=== PATIENT | female | born 1995 | race Caucasian/White ===

== ENCOUNTER → 2018-04-28 16:43 | Outpatient (CLI) | payer MEDICAID, SELFPAY ==
[2017-04-24 21:17] VITALS: BMI 39.3
--- NOTE | 2018-04-28 13:36 | TONS_PTH ---
PATIENT: TRUONG SEPULVEDA LOC: JULIO CESAR U#:[id number] AGE/SX: 29/F ROOM: RE04/28/[address]: Dr. Darius Newman MD : 1995 BED: DIS: SPEC #: [id number] RECD: 04/28/18 15:19 STATUS: NAOMI SALVATORE #: [id number] HARVEY: 04/28/18 13:[address]: Darius Newman DEPT: SURGICAL PATHOLOGY RECD BY: Jay Jay Jose ENTERED: 04/29/18 08:33 SP TYPE: TONSILS OTHR DR: Out of Town Doctor [facility] Tissues: Tonsil, NOS Procedures: Surgery Specimen Level III HEADER OPERATION: Tonsillectomy PRE-OP DIAGNOSIS: Chronic tonsillitis TISSUE SUBMITTED: Tonsils, right pinned MICROSCOPIC DIAGNOSIS Right and left tonsils, bilateral tonsillectomies: Benign lymphoid hyperplasia, consistent with chronic tonsillitis. Organisms consistent with actinomyces. AM:oxana 04/30/18 MICROSCOPIC DESCRIPTION Slides are reviewed. GROSS DESCRIPTION Received is one container labeled with the patient's name and designated tonsils - pin/tie on right are two tonsils that in aggregate weigh 6.7 gm. The right tonsil has a pin-tie on it and measures 3 x 2 x 1 cm. The left tonsil measures 3 x 2 x 1.2 cm. Both tonsils are similar in appearance. The external surfaces are pink-burroughs, smooth, glistening and somewhat lobulated. Focally they are hemorrhagic, granular and bear cautery artifact. Serial cross sections through the tonsils reveal normal tonsillar architecture. Sections are submitted in two cassettes as follows: 1 - right tonsil, 2 - left tonsil. / AM:oxana 04/29/18 TC:5 [facility]: [id number] x2
--- OUTSIDE RECORDS SUMMARY | 2018-06-30 23:02 | XMS RPT_ITS ---
:1995 Author Organization [facility] Care Team Providers Name Role Phone MAGDIEL CHOU Attending Unavailable Darius Newman Attending Unavailable Darius Newman Referring Unavailable ANGELINA RUBALCAVA Primary Care Unavailable PROBLEMS PROBLEMS No Problem Records FoundPROCEDURES PROCEDURES No Procedure Records FoundRESULTS RESULTS TONSILS Observed: 04/28/2018 Status: F Source: [place] 1:36 PM [facility] REPOSITORY Patient: TRUONG LANDERS : 1995 (/) Acct Num: [id number] Phys: Darius Newman MD Unit Num: [id number] Loc: LABSPEC Specimen: [id number] Received: 04/28/181518 Spec Type: TONSILS TISSUES 1 TISSUES: Tonsil, NOS GROSS DESCRIPTION Received is one container labeled with the patient's name and designated tonsils - pin/tie on right are two tonsils that in aggregate weigh 6.7 gm. The right tonsil has a pin-tie on it and measures 3 x 2 x 1 cm. The left tonsil measures 3 x 2 x 1.2 cm. Both tonsils are similar in appearance. The external surfaces are pink-burroughs, smooth, glistening and somewhat lobulated. Focally they are hemorrhagic, granular and bear cautery artifact. Serial cross sections through the tonsils reveal normal tonsillar architecture. Sections are submitted in two cassettes as follows: 1 - right tonsil, 2 - left tonsil. / AM:oxana 04/29/18 TC:5 CPT: 62414 x2 HEADER OPERATION: Tonsillectomy PRE-OP DIAGNOSIS: Chronic tonsillitis TISSUE SUBMITTED: Tonsils, right pinned MICROSCOPIC DESCRIPTION Slides are reviewed. MICROSCOPIC DIAGNOSIS Right and left tonsils, bilateral tonsillectomies: Benign lymphoid hyperplasia, consistent with chronic tonsillitis. Organisms consistent with actinomyces. AM:rg 04/30/18 Signed Darius Colby, DO 04/30/18 <signature on file> Performed By: #### PTONS #### [facility] [address] [place], [address] Observed: 09/23/2017 Status: F Source: [place] BACT VAG GRAM STAIN 5:00 PM [facility] REPOSITORY Sp. Request/Comment: - Swab Smear Result - BACTERIAL VAGINOSIS RESULT: Stain results consistent with normal vaginal makenzie. No Yeast observed No Polymorphonuclear Leukocytes Performed By: #### BVSTN #### [facility] [place] [address] Observed: 09/23/2017 Status: F Source: [place] TRICHOMONAS PREP 5:00 PM [facility] REPOSITORY Sp. Request/Comment: - Swab Smear Result - Negative for Trichomonas vaginalis antigen This test was developed and its performance characteristics determined by [facility] [place] ([facility]). It has not been cleared or approved by the FDA. [facility] is regulated under CLIA as qualified to perform high-complexity testing. This test is used for clinical purposes. It should not be regarded as investigational or for research. Performed By: #### TRICHO #### [facility] [place] [address] GC/CHLAMYDIA AMPLIF Collected: 09/23/2017 Status: F Source: [place] 5:00 [facility] REPOSITORY TYPE CODE TESTS RESULT OUT OF REFERENCE UNITS RANGE LAB GCCTSR GC/Chlam Amp [facility] Source LAB GCAMPL GC Negative Amplification for Neisseria gonorrhoeae by amplification. LAB CLAMPL Chlamydia Negative Amplif for Chlamydia trachomatis by amplification. Performed By: #### GCCT #### [facility] [place] [address] PROGRESS Observed: 09/23/2017 Status: COMPLETED Source: [place] 4:37 PM [facility] RE[facility]IT[facility] HNO ID: [id number] Author: Magdiel Chou Service: (none) Author Type: Physician Type: Progress Notes Filed: 09/23/2017 5:05 PM Note Text: Truong Landers is a 21 year old female who presents for pelvic pain. HPI: Patient reports monthly cramping/pelvic pain. Patient reports some urinary frequency- this started 1 month ago. She wants to discuss mirena AND other control options. She denies vaginitis symptoms but is OK with being checking for infection. PAST MEDICAL HISTORY Diagnosis Date - Anxiety - Depression PAST SURGICAL HISTORY Procedure Laterality Date - NONE FAMILY HISTORY Problem Relation Age of Onset - Diabetes Paternal Grandmother - Diabetes Maternal Grandmother Social History Marital status: Single Spouse name: Years of education: Number of children: Social History Main Topics Smoking status: Former Smoker Packs/day: 0.00 Years: 0.00 Types: Cigarettes Smokeless tobacco: Never Used Comment: 2 cigarettes daily Alcohol use: No Drug use: No Sexual activity: Yes control/protection: IUD Social History Narrative PEDS SOCIAL Hx: Llives with Mom and step dad.. Parents are . Parents smokes in the house.. She is cared for at home by mother. There are no pets. Newer home (post 1969)- yes. Smoke detectors- yes, Appropriate use of auto restraints- yes , Appropriate use of sports safety equipment-yes, All firearms secured in home- in a safe. Swimming/water Safety OK- no. Current Outpatient Prescriptions: FLUOXETINE HCL (PROZAC ORAL) Take by mouth. Naproxen Sodium 550 mg tablet Take 1 tablet by mouth twice daily with meals. For pain. levonorgestrel (MIRENA) 20 mcg/24 hr (5 years) IUD Inserted in office No current facility-administered medications for this visit. Allergies As of Date: 09/23/2017 (No Known Allergies) Fully Assessed 04/29/2016 REVIEW OF SYSTEMS Abdomen: No bloating, early satiety, indigestion, or increased flatulence. No abdominal pain, nausea, vomiting, diarrhea, or constipation. Breast: No breast lumps, nipple d/c, overlying skin changes, redness or skin retraction. Expanded ROS: N/A Allergies and current medication updated:Yes EXAM: BP 118/78 Wt 221 lb (100.2kg) GENERAL: pleasant, female in no apparent distress CHEST: Normal inspiratory effort ABDOMEN: soft, non-tender and no masses PELVIC: external genitalia normal, normal Bartholin's glands, urethra, [place]'s glands, no vulvar lesions, no cervical lesions, good vaginal support, physiologic discharge present, normal appearing perineal body and perianal region; IUD strings extruding from cervix BIMANUAL: exam limited by obesity AND patients discomfort with exam NEURO: alert and oriented x3,exam grossly non-focal EXTREMITIES: normal ASSESSMENT AND PLAN: 21yo female with pelvic pain, urinary frequency AND control concerns Check pelvic US Vaginitis swab AND GC/chlam UA AND urine culture Discussed R/B/A of control options AND patient will continue mirena IUD at this time Magdiel Chou MD CNOV Observed: 09/23/2017 Status: COMPLETED Source: [place] 4:20 PM [facility] REPOSITORY Office Visit (WOOB) TRUONG LANDERS ([id number]) 1995 F Date Time Provider Department 09/23/17 4:20 PM MAGDIEL CHUO During your visit today, we recorded the following information about you: Blood pressure Weight 118/78 100.2 kg Magdiel Chou MD 09/23/2017 5:05 PM Signed Truong Landers is a 21 year old female who presents for pelvic pain. HPI: Patient reports monthly cramping/pelvic pain. Patient reports some urinary frequency- this started 1 month ago. She wants to discuss mirena AND other control options. She denies vaginitis symptoms but is OK with being checking for infection. PAST MEDICAL HISTORY Diagnosis Date - Anxiety - Depression PAST SURGICAL HISTORY Procedure Laterality Date - NONE FAMILY HISTORY Problem Relation Age of Onset - Diabetes Paternal Grandmother - Diabetes Maternal Grandmother Social History Marital status: Single Spouse name: Years of education: Number of children: Social History Main Topics Smoking status: Former Smoker Packs/day: 0.00 Years: 0.00 Types: Cigarettes Smokeless tobacco: Never Used Comment: 2 cigarettes daily Alcohol use: No Drug use: No Sexual activity: Yes control/protection: IUD Social History Narrative PEDS SOCIAL Hx: Llives with Mom and step dad.. Parents are . Parents smokes in the house.. She is cared for at home by mother. There are no pets. Newer home (post 1970)- yes. Smoke detectors- yes, Appropriate use of auto restraints- yes , Appropriate use of sports safety equipment-yes, All firearms secured in home- in a safe. Swimming/water Safety OK- no. Current Outpatient Prescriptions: FLUOXETINE HCL (PROZAC ORAL) Take by mouth. Naproxen Sodium 550 mg tablet Take 1 tablet by mouth twice daily with meals. For pain. levonorgestrel (MIRENA) 20 mcg/24 hr (5 years) IUD Inserted in office No current facility-administered medications for this visit. Allergies As of Date: 09/23/2017 (No Known Allergies) Fully Assessed 04/29/2016 REVIEW OF SYSTEMS Abdomen: No bloating, early satiety, indigestion, or increased flatulence. No abdominal pain, nausea, vomiting, diarrhea, or constipation. Breast: No breast lumps, nipple d/c, overlying skin changes, redness or skin retraction. Expanded ROS: N/A Allergies and current medication updated:Yes EXAM: BP 118/78 Wt 221 lb (100.2kg) GENERAL: pleasant, female in no apparent distress CHEST: Normal inspiratory effort ABDOMEN: soft, non-tender and no masses PELVIC: external genitalia normal, normal Bartholin's glands, urethra, [place]'s glands, no vulvar lesions, no cervical lesions, good vaginal support, physiologic discharge present, normal appearing perineal body and perianal region; IUD strings extruding from cervix BIMANUAL: exam limited by obesity AND patients discomfort with exam NEURO: alert and oriented x3,exam grossly non-focal EXTREMITIES: normal ASSESSMENT AND PLAN: 21yo female with pelvic pain, urinary frequency AND control concerns Check pelvic US Vaginitis swab AND GC/chlam UA AND urine culture Discussed R/B/A of control options AND patient will continue mirena IUD at this time Magdiel Chou MD Referring Provider: SELF [200] Allergies As of Date: 09/23/2017 (No Known Allergies) Date Reviewed: 09/23/2017 Reviewed by: Magdiel Chou - Fully Assessed Reason for Visit: IUD Removal [1950] Reason For Visit History Recorded Primary Visit Diagnosis:Pelvic pain [R10.2] Other Visit Diagnoses:Encounter for IUD removal [Z30.432] Urinary frequency [R35.0] Order(s):REMOVE INTRAUTERINE DEVICE [1875065] Order #: [id number] FEMALE PELVIS TRANSVAG [[id number]] Order #: [id number] FUTURE US FEMALE PELVIS TRANSABD LTD [[id number]] Order #: [id number] FUTURE PELVIC US WHI [5618874] Order #: [id number]: 1 BACTERIAL VAGINOSIS SCORED GRAM STAIN [SQBVSTN] Order #: [id number] VAGINAL SMEAR FOR JESSI [SQCANSTN] Order #: [id number] TRICHOMONAS PREP [SQTRICHO] Order #: [id number] GC/CHLAMYDIA DNA DET [SQGCCAMP] Order #: [id number] URINALYSIS WITH MICROSCOPIC [SQUAWMIC] Order #: [id number] URINE CULTURE [SQURCUL] Order #: [id number] FUTURE Prescriptions as of 09/23/2017 Sig: PROZAC ORAL Take by mouth. NAPROXEN SODIUM 550 MG TABLET Take 1 tablet by mouth twice * LEVONORGESTREL 20 MCG/24 HR (* Inserted in office Problem List As Of Date 09/23/2017 Noted Resolved ROUTIN CHILD HEALTH EXAM [Z00.129] INVALID FOR* SPEECH/LANGUAGE DIS NEC [F80.89] INVALID FOR* Medications Discontinued During This Encounter LEVOTHYROXINE SODIUM (LEVOTHROID ORA* 09/23/2017 Class: Historical Med Route: ORAL Sig: Take by mouth. Disc: Discontinued by Patient FLUoxetine (PROZAC) 20 mg capsule 09/23/2017 Class: Historical Med Route: ORAL Sig: Take 20 mg by mouth once daily. Disc: Discontinued by Patient Sxquaadodydse-Yzhlkayjtyqhd-BK (TYLE* 30 t* 0 07/25/2015 09/23/2017 Route: ORAL Sig: Take 1 Dose by mouth four times daily as needed. Disc: Discontinued by Patient citalopram hydrobromide (CELEXA) 10 * 09/23/2017 Class: Historical Med Route: ORAL Sig: Take 10 mg by mouth once daily. Disc: Discontinued by Patient Malathion (OVIDE) 0.5 % lotion 59 mL 1 02/23/2015 09/23/2017 Class: Print RX Sig: Use on dry hair and rub gently until the scalp is thoroughly moistened (pay special attention to the back of the head and neck). Allow to dry naturally - USE NO HEAT. Leave uncovered. After 8-12 hours, wash hair with a nonmedicated shampoo. Then use a fine-toothed comb to remove lice and nits. Repeat in 1 week if required. Disc: Discontinued by Patient phenazopyridine (PYRIDIUM) 100 mg ta* 9 ta* 0 05/05/2015 09/23/2017 Route: ORAL Sig: Take 1 tablet by mouth three times daily as needed. Disc: Discontinued by Patient Disposition: Return if symptoms worsen or fail to improve, for Routine annual exam. Follow-up and Disposition History Recorded Encounter Status:Closed by MAGDIEL CHOU MD on 09/23/17 ALLERGIES ALLERGIES DATE TYPE / CODE NAME / CODE REACTION SEVERITY SOURCE 04/24/2017 Drug peanut/[id number] Swelling Unknown [facility] Allergy/416 8(RXNORM) [facility] 929088(SNOM Repository ED CT) Drug NO KNOWN [facility] Class/59282 ALLERGIES [address] [place] 1003(SNOMED Repository CT) ENCOUNTERS ENCOUNTERS ADMIT/DISCHARGE ACCOUNT ADMITTING ENCOUNTER LOCATION SOURCE NUMBER CLASS 04/28/2018 [id number] [facility] ing:LABSPEC Repository 09/23/2017/09/26/19 [id number] Ambulatory [address] Repository PAYERS PAYERS ENCOUNTER GUARANTOR PAYER SUBSCRIBER SOURCE 04/28/2018 TRUONG Primary TRUONG [place] [id number] Insurance:CARESOURCEP THEODORAB: [facility] jalyn [place]ORE [facility]: [id number] [address]Twk: [id number] Repository Date:2018-04-28 O (LV) [address]ATTN: [place] [address]OS: 04/28/2018 [facility]SELF [facility] Number: Effective Repository Date:2018-04-28
== END ==
PROVIDERS: Referring Provider Otolaryngology Otolaryngology/Facial Plastic Surgery; Visit Provider Otolaryngology Otolaryngology/Facial Plastic Surgery
DX: J35.01 Chronic tonsillitis (principal)
CPT/HCPCS: 88304

== ENCOUNTER 2018-05-05 12:59 | Day surgery (SDC) | payer MEDICAID, SELFPAY ==
[2018-05-05] VITALS (8 sets, daily range): BP systolic 121–155; BP diastolic 83–95; PULSE 88–115; RESP 16–18; TEMP 36.3–37.7; O2SAT 95–99; BMI 36.9; BMI 36.5
--- NOTE | 2018-05-05 13:09 | ED.RN ---
DR NEELY CALLED IN, TO SEE PT SHORTLY
--- NOTE | 2018-05-05 13:21 | ED.RN ---
DR NEELY PRESENT FOR PT'S EXAMINATION
--- NOTE | 2018-05-05 13:31 | ED.RN ---
TO GO DIRECTLY TO OR PER DR NEELY. SPOKE WITH JORGE, SURGERY CHARGE NURSE WHO IS AWAITING PT.
[2018-05-05 14:34] LABS: Internal QC Validated? YES +Cl - CLEAR BKGD; Pregnancy, Urine Negative Negative
[2018-05-05] MEDS: Oxymetazoline 0.05% 1 SPRAY SPRAY.BTL 15 SPRAY (15:00)
--- NOTE | 2018-05-05 15:04 | PCM.OP.BLANK ---
Operative Report Date of Procedure: 05/05/18 Operative report on Jagruti larry Procedure hypopharyngoscopy and cautery of tonsil bleeder Preoperative diagnosis post tonsillectomy bleeding Postoperative diagnosis same Anesthesia General Procedure the patient was placed supine on the operating room table. After satisfactory endotracheal general anesthesia been obtained sterile head drapes were applied and the patient draped in the usual sterile manner. A Dangelo-Paulie mouthgag was placed in the oral cavity and the tongue retracted anteriorly. The left tonsil fossa appeared to exhibit a large dark clot. The clot was evacuated with suction and a brisk bleeder was encountered arising from the lower portion of the left tonsil fossa. The bleeding site was cauterized with the Bovie. The tonsil fossa was cleaned with suction and the hypopharynx was suctioned. The stomach contents were aspirated with a [employer] Tech sump pump. The procedure was considered terminated and the patient extubated and returned to the recovery room in satisfactory condition. Darius Leonardo
--- NOTE | 2018-05-05 15:08 | OP.PCM_ITS ---
Operative Report Date of Procedure: 05/05/18 Operative report on Jagruti larry Procedure hypopharyngoscopy and cautery of tonsil bleeder Preoperative diagnosis post tonsillectomy bleeding Postoperative diagnosis same Anesthesia General Procedure the patient was placed supine on the operating room table. After satisfactory endotracheal general anesthesia been obtained sterile head drapes were applied and the patient draped in the usual sterile manner. A Dangelo-Paulie mouthgag was placed in the oral cavity and the tongue retracted anteriorly. The left tonsil fossa appeared to exhibit a large dark clot. The clot was evacuated with suction and a brisk bleeder was encountered arising from the lower portion of the left tonsil fossa. The bleeding site was cauterized with the Bovie. The tonsil fossa was cleaned with suction and the hypopharynx was suctioned. The stomach contents were aspirated with a [employer] Digital sump pump. The procedure was considered terminated and the patient extubated and returned to the recovery room in satisfactory condition. Darius Leonardo
[2018-05-05] MEDS: Acetaminophen 650 MG/20 ML UDC PO (16:02)
== END 2018-05-05 17:25 | disposition home or self-care (01) ==
LOC: SDC 13:46 → AC 13:46
PROVIDERS: Anesthesiology; Family Provider Family Medicine; PCP Family Medicine; Referring Provider Otolaryngology Otolaryngology/Facial Plastic Surgery; Visit Provider Otolaryngology Otolaryngology/Facial Plastic Surgery
PROC: (CPT 42960; principal; 2018-05-05 13:30)
DX: J95.830 Postprocedural hemorrhage of a respiratory system organ or structure following a respiratory system procedure (principal); Y83.9 Surgical procedure, unspecified as the cause of abnormal reaction of the patient, or of later complication, without mention of misadventure at the time of the procedure; F17.200 Nicotine dependence, unspecified, uncomplicated; F43.10 Post-traumatic stress disorder, unspecified
CPT/HCPCS: 42960; 81025; J7120; J2405

== ENCOUNTER 2018-05-12 16:02 | Emergency (ER) | payer MEDICAID, SELFPAY ==
[2018-05-05 14:07] VITALS: BMI 36.5
[2018-05-12 16:03] VITALS: BP 122/91; PULSE 104; RESP 16; TEMP 36.2; O2SAT 95; BMI 36.6
[2018-05-12 16:33] VITALS: O2SAT 95
--- NOTE | 2018-05-12 16:40 | RAD_ITS ---
STUDY: X-RAY CHEST REASON FOR EXAM: Female, 22 years old. Cough 1 week TECHNIQUE: PA and lateral views of the chest. COMPARISON: April 24, 2017 chest x-ray FINDINGS: The lungs are clear and expanded. There is no demonstrated pleural abnormality. Normal size heart. Normal mediastinum and hilario. Normal visualized pulmonary arteries. Normal visualized aortic arch and descending thoracic aorta. Normal visualized thoracic spine. Normal visualized ribs, clavicles, and shoulders. There is no demonstrated abnormality of the visualized soft tissue structures of the upper abdomen. RAD/Chest PA and Lateral IMPRESSION: Normal x-ray examination of the chest. Electronically Signed: Monica Hines MD at 17:01 EST Tel , Service support ,
--- NOTE | 2018-05-12 16:43 | ED.DCSUM_ITS ---
- ER Visit Summary Date of Service: 05/12/18 Chief Complaint: [Cough] History of Present Illness: The patient is a 22 F [presents to the emergency department complaint of a cough that started about a week ago. Patient states the cough got worse last night. Patient states all her other siblings have been ill with similar type illness. Patient states that she is coughing so hard that it is making her gag and she is been vomiting. She denies any diarrhea. She denies any abdominal pain. Patient is not had a fever or chills. Cough at times is productive of yellow sputum.] Physical Examination: [HEENT-PERRLA, EOMI. Cranial nerves II through XII grossly intact. TMs clear. Mucous membranes moist. No adenopathy. Cardiovascular-regular rate and rhythm without murmur or ectopy Lungs-clear to auscultation, chest wall stable without crepitus or subcu emphysema Abdomen-normoactive bowel sounds, soft, nontender, no rebound or rigidity, no peritoneal signs. Extremities-intact ?4, normal range of motion, normal pulses, atraumatic] Test Results: [Chest x-ray obtained showed nothing acute] Emergency Department Course and Treatment: [] Treatment Plan: [Patient will be started on Tessalon Perles. I suspect likely viral etiology. I do not feel antibiotics are indicated at this time.] Disposition: [Discharged home in stable condition] Impression: [Viral URI Posttussive emesis] This note was generated with [employer] dictation software. It may contain incorrect words, spelling, and punctuation that were not noted in review of the chart prior to signing ED Disposition - Plan for ED Patient: Referrals: London Ferris MD [Primary Care Provider] -
--- NOTE | 2018-05-12 16:43 | ED.DEP ---
ED Disposition - Plan for ED Patient: Instructions: ED Upper Resp Infec No Abx Tx Prescriptions: Benzonatate [Tessalon Perle] 200 mg PO TID PRN PRN #20 cap PRN Reason: Cough Referrals: London Ferris MD [Primary Care Provider] - 5-7 Days
[2018-05-12] MEDS: Benzonatate 100 MG Capsule 200 MG PO (16:52)
== END 2018-05-12 17:21 | disposition home or self-care (01) ==
LOC: ED 16:44
PROVIDERS: Emergency Provider Emergency Medicine; Family Provider Family Medicine; PCP Family Medicine
DX: J06.9 Acute upper respiratory infection, unspecified (principal); R11.10 Vomiting, unspecified; Z72.0 Tobacco use
CPT/HCPCS: 71046; 99283

== ENCOUNTER 2019-09-07 22:31 | Observation (INO) | payer MEDICAID, SELFPAY ==
[2019-09-07 22:31] VITALS: BP 135/98; PULSE 115; RESP 20; TEMP 37.1; O2SAT 98; BMI 39.4
--- NOTE | 2019-09-07 22:56 | US_ITS ---
STUDY: ABDOMINAL ULTRASOUND - RIGHT UPPER QUADRANT REASON FOR VISIT: Female, 23 years old patient with back pain after eating TECHNIQUE: Ultrasound evaluation of the right upper quadrant was performed with real-time and static rodriguez-scale imaging. TECHNICAL QUALITY: Adequate. Examination limited by bowel gas. COMPARISON: Prior comparable comparison studies are not available for review at this time. FINDINGS: Liver: The liver measures 17.1 cm. There is normal echogenicity of the liver. The bile ducts are within normal limits. There is hepatic color flow. The direction of portal flow is hepatopetal. There is no demonstrated mass lesion. Gallbladder: There is a markedly distended gallbladder. The gallbladder wall measures 3.3 mm. There is a positive sonographic Ellis''s sign. There is no pericholecystic fluid. There are multiple echogenic structures within the gallbladder, consistent with multiple gallstones. Common Bile Duct (C.B.D.): The common bile duct measures 7.7 mm. Pancreas: Normal size of body of the pancreas. Pancreatic head and tail are not visualized There is normal echogenicity of the pancreas. There is no demonstrated pancreatic mass or cyst. Right Kidney: Normal size of the right kidney. The right kidney measures 10.2 x 3.9 x 4.5 cm. Normal renal cortex. The right cortex measures 1.3 cm. There is no demonstrated renal mass or cyst. There is no right hydronephrosis. US/Gallbladder IMPRESSION: 1. Cholelithiasis with positive sonographic Ellis''s sign suggests sequela of acute cholecystitis. 2. Dilated common bile duct. 3. Limited visualization of pancreas secondary to bowel gas. Electronically Signed: Snehal Watson MD at 0:21 EDT , Service support ,
[2019-09-07] MEDS: 0.9% Normal Saline 1,000 ML 125 ML IV (23:39)
[2019-09-07 23:40] LABS: Absolute Lymphocyte Count 1.84 X10^3/uL (0.83-4.51); Absolute Neutrophil Count 6.2 X10^3/uL (2.0-7.7); Basophil# 0.05 X10^3/uL; Basophil% 0.6 % (0-1); Eosinophil# 0.04 X10^3/uL; Eosinophils% 0.5 % (0-5); Hematocrit 43.3 % (37-47); Hemoglobin 13.5 g/dL (12.0-15.0); Lymphocyte # 1.84 X10^3/ul (4.0); Lymphocyte % 21.5 % (19-41); Mean Corp Hgb Conc 31.2 g/dL (32-36); Mean Corpuscular Volume 93.1 fL (81-99); Mean Platelet Vol. 11.4 fl (6.2-12.0); Monocyte# 0.39 X10^3/uL; Monocyte% 4.6 % (0-10); NRBC Flagged by Analyzer 0 % (0-5); Neutrophil % 72.6 % (47-70); Platelet Count 236 K/mm3 (150-450); RBC Distribution Width CV 12.5 % (11.6-14.6); RBC Distribution Width SD 42.8 fl (35.1-43.9); Red Blood Count 4.65 M/mm3 (4.2-5.4); White Blood Count 8.5 K/mm3 (4.4-11.0)
[2019-09-07 23:47] LABS: Internal QC Validated? YES +Cl - CLEAR BKGD; Pregnancy, Serum, hCG Quali. NEGATIVE Negative
[2019-09-08] VITALS (11 sets, daily range): BP systolic 104–149; BP diastolic 70–89; PULSE 83–111; RESP 16–20; TEMP 36.2–37.1; O2SAT 92–100; BMI 38.8; BMI 38.9
[2019-09-08 00:02] LABS: ALB/GLOB Ratio 0.7 RATIO (0.9-2.4); AST(SGOT) 277 U/L (15-37); Alanine Aminotransfer ALT/SGPT 423 U/L (13-56); Albumin, Serum 3.2 g/dL (3.2-5.0); Alkaline Phosphatase 201 U/L (45-117); Anion Gap 8 (5-15); BUN 10 mg/dL (7-18); BUN/Creat Ratio 12.9 RATIO (10-20); Calcium,Total 8.8 mg/dL (8.5-10.1); Chloride 107 mmol/L (98-107); Creatinine, Serum 0.77 mg/dL (0.55-1.02); EST Glomerular Filtration Rate 98 mL/min (>60); Est Glom Filt Rate - Afr Amer 119 mL/min (>60); Estimated Creatinine Clearance 98.96 ml/min; Globulin 4.4 g/dL (2.2-4.2); Glucose 98 mg/dL (74-106); Lipase 81 U/L (73-393); Potassium 4.5 mmol/L (3.5-5.1); Protein, Total 7.6 g/dL (6.4-8.2); Sodium Level 140 mmol/L (136-145)
[2019-09-08 00:31] LABS: Mucous, Urine 0 SEEN /hpf (<or=2+); Red Blood Cells-Urine 0 SEEN /hpf (0-5)
[2019-09-08 00:34] LABS: Color, Urine Straw (Yellow); Glucose, Dipstick Normal (Normal); Ketone-Dipstick 15 mg/dl (Negative); Leukocyte Esterase-Dipstick 25 /ul (Negative); Nitrite-Dipstick Negative (Negative); Occult Blood-Urine Negative /ul (Negative); Protein-Dipstick 15 mg/dl (Negative); Urine Clarity Clear (Clear); Urine Urobilinogen 12 mg/dl (Normal)
--- NOTE | 2019-09-08 00:36 | ED.DCSUM_ITS ---
- ER Visit Summary Date of Service: 09/08/19 Chief Complaint: [Abdominal pain] History of Present Illness: The patient is a 23 F [presents the emergency department abdominal pain that started 3 days ago. Patient's had pain off and on for years. Patient states that when she eats she gets the pain. Patient notices it more with greasy food. Pain became more severe tonight. She describes the pain in her back as well. She has had no nausea or vomiting. She denies urinary symptoms. Patient has no medical history.] Physical Examination: [HEENT-PERRLA, EOMI. Cranial nerves II through XII grossly intact. TMs clear. Mucous membranes moist. No adenopathy. Cardiovascular-regular rate and rhythm without murmur or ectopy Lungs-clear to auscultation, chest wall stable without crepitus or subcu emphysema Abdomen-normoactive bowel sounds, soft. Patient has tenderness to palpation over the right upper quadrant with guarding. She had a positive Ellis sign. Extremities-intact ?4, normal range of motion, normal pulses, atraumatic] Test Results: [CBC with differential obtained showed a normal white count of 8.5, hemoglobin 13.5, hematocrit 43, platelet 236. Chemistries unremarkable. Total bilirubin was 3.1. Alk phos was 201. ALT was 423 and AST was 277. Lipase was 81. hCG was negative. Ultrasound of the right upper quadrant showed cholelithiasis as well as a distended common bile duct of 7.7 mm and a positive sonographic Ellis sign which would be consistent with cholecystitis.] Emergency Department Course and Treatment: [She had an IV line established. She was medicated with Dilaudid 1 mg IV and Zofran 4 mg IV. Case was discussed with general surgeon on-call Dr. Patricia Harris who will admit patient to hospital.] Treatment Plan: [Admit] Disposition: [Admit] Impression: [Abdominal pain Cholecystitis] This note was generated with [employer] dictation software. It may contain incorrect words, spelling, and punctuation that were not noted in review of the chart prior to signing ED Disposition - Plan for ED Patient: Referrals: London Ferris MD [Primary Care Provider] -
[2019-09-08 00:37] LABS: Urine Bilirubin Dipstick 3 mg/dL (Negative)
[2019-09-08 00:41] LABS: White Blood Cells 5-10 SEEN /hpf (0-5)
[2019-09-08 00:42] LABS: Bacteria 1+ /hpf (None Seen); Squamous Epithelial Cells - UA 10-25 SEEN /hpf (5-10)
[2019-09-08] MEDS: HYDROmorphone 1 MG/ML Syringe IV (00:49)
[2019-09-08] MEDS: Ondansetron 4 MG/2 ML Vial IV (00:49)
[2019-09-08] MEDS: 0.9% Normal Saline 1,000 ML 125 ML IV ×3 (03:16→21:36)
--- NOTE | 2019-09-08 04:40 | NURSING ---
Yessenia from respiratory notified that pt will need EKG done for surgery.
--- NOTE | 2019-09-08 05:30 | EKG12_ITS ---
Test Reason : PRE-OP Blood Pressure : / mmHG Vent. Rate : 073 BPM Atrial Rate : 073 BPM P-R Int : 160 ms QRS Dur : 080 ms QT Int : 364 ms P-R-T Axes : 032 033 032 degrees QTc Int : 401 ms Sinus rhythm with marked sinus arrhythmia Otherwise normal ECG When compared with ECG of 24-APR-2017 21:25, No significant change was found Confirmed by GAGAN CASTRO ([id number]), tape editor MAYO PERES ([id number]) on 09/16/2019 7:57:44 AM Referred By: AG Confirmed By:AGGAN CASTRO
[2019-09-08 05:47] LABS: Absolute Lymphocyte Count 2.07 X10^3/uL (0.83-4.51); Absolute Neutrophil Count 6.6 X10^3/uL (2.0-7.7); Basophil# 0.04 X10^3/uL; Basophil% 0.4 % (0-1); Eosinophil# 0.01 X10^3/uL; Eosinophils% 0.1 % (0-5); Hematocrit 39.5 % (37-47); Hemoglobin 12.4 g/dL (12.0-15.0); Lymphocyte # 2.07 X10^3/ul (4.0); Lymphocyte % 22.5 % (19-41); Mean Corp Hgb Conc 31.4 g/dL (32-36); Mean Corpuscular Hgb 28.9 pg (27.0-32.0); Mean Corpuscular Volume 92.1 fL (81-99); Mean Platelet Vol. 11.4 fl (6.2-12.0); Monocyte# 0.49 X10^3/uL; Monocyte% 5.3 % (0-10); NRBC Flagged by Analyzer 0 % (0-5); Neutrophil # 6.57 X10^3/uL (2.7-7.7); Neutrophil % 71.5 % (47-70); Platelet Count 251 K/mm3 (150-450); RBC Distribution Width CV 12.4 % (11.6-14.6); RBC Distribution Width SD 41.6 fl (35.1-43.9); Red Blood Count 4.29 M/mm3 (4.2-5.4); White Blood Count 9.2 K/mm3 (4.4-11.0)
[2019-09-08 06:16] LABS: AST(SGOT) 367 U/L (15-37); Alanine Aminotransfer ALT/SGPT 458 U/L (13-56); Albumin, Serum 2.9 g/dL (3.2-5.0); Alkaline Phosphatase 208 U/L (45-117); Anion Gap 8 (5-15); BUN 7 mg/dL (7-18); BUN/Creat Ratio 10.5 RATIO (10-20); Bilirubin, Direct 1.83 mg/dL (0.00-0.30); Calcium,Total 8.1 mg/dL (8.5-10.1); Chloride 108 mmol/L (98-107); Creatinine, Serum 0.67 mg/dL (0.55-1.02); EST Glomerular Filtration Rate 117 mL/min (>60); Est Glom Filt Rate - Afr Amer 141 mL/min (>60); Estimated Creatinine Clearance 113.73 ml/min; Globulin 3.9 g/dL (2.2-4.2); Glucose 99 mg/dL (74-106); Potassium 3.6 mmol/L (3.5-5.1); Protein, Total 6.8 g/dL (6.4-8.2); Sodium Level 141 mmol/L (136-145)
--- NOTE | 2019-09-08 06:36 | HP.PCM_ITS ---
History of Present Illness Date of Admission: 09/08/19 The patient is a 23 year old F presented to the ER due to right upper quadrant abdominal pain which has been, ongoing off and on for 3 days. Patient states usually starts in her back, will wrap around to her right side/chest. Patient did have nausea and vomiting every time after eating along with the increased pain. Patient ultrasound of her gallbladder which showed a bladder wall of 3.3 mm, small gallstones/sludge, common bile duct of 7.7 mm, white blood cell count within normal range slight left shift, elevated LFTs with total bili of 3 and AST and ALT and alk phos in the 2-400s. Patient states she has had gallbladder attacks off and on for a while but usually they do not last 3 days only 1 or 2. Patient also admits to having reflux currently she is not on any medication for this. Patient states her current abdominal pain is a 1/10 when she came in it was an 8/10. Past Medical History Medical History: Medical History (Last Updated 09/08/19 @ 07:[address] Patricia Harris MD) Bipolar depression (Acute) F31.9 Allergies peanut Adverse Reaction (Verified 09/08/19 02:26) Anaphylaxis Home Medications: Ambulatory Orders Medication Instructions Recorded Prazosin HCl 1 mg PO DAILY 09/07/19 Aripiprazole [Abilify] 5 mg PO DAILY 09/08/19 Surgical History: tonsillectomy Psychiatric History: Bipolar [employer] History: No pertinent [employer] history Smoking Status: Former smoker Tobacco Use: Cigarettes - *Family History Maternal History Items: No pertinent history Review of Systems Constitutional: Reports: Anorexia. Denies: Fever Eyes: Denies: Blurred vision HEENT: Denies: Difficulty Swallowing Cardiovascular: Denies: Chest Pain Respiratory: Denies: Cough, Shortness of Breath Gastrointestinal: Reports: Abdominal Pain, Nausea, Vomiting Genitourinary: Denies: Dysuria Hematologic/ Lymphatic: Denies: Easy Bruising, Easy Bleeding VTE Information - Inpt Only VTE Present on Admission: Yes VTE Mechan Device Prophylaxis: SCD's Patient Problems: Active and Suspected Problems (Last Updated 09/08/19 @ 07:[address] Patricia Harris MD) Bipolar depression (Acute) - Physical Exam Vitals/I&O's: Vital Signs Temp Pulse Resp BP Pulse Ox 97.8 F 90 20 H 110/75 96 09/08/19 02:54 09/08/19 03:07 09/08/19 03:07 09/08/19 02:54 09/08/19 02:54 Oxygen Delivery Method Room Air Weight: 226 lb 6.636 oz Body Mass Index (BMI) 38.8 Intake and Output for Last 24 Hours 09/06/19 09/07/19 09/08/19 23:59 23:59 23:59 Intake Total 502.33 / 502.33 Balance 502.33 / 502.33 General: Alert, Oriented x3, Cooperative, No apparent distress HEENT: Atraumatic Lungs: Normal air movement Cardiovascular: Regular rate Abdomen: Soft, Non-Distended, Tender - mild RUQ/LUQ, no PS Extremities: No clubbing, No cyanosis, No edema Neurological: Cranial nerves II-XII grossly intact Psych/Mental Status: Normal Affect Laboratory Results 09/07/19 23:31: WBC 8.5, RBC 4.65, Hgb 13.5, Hct 43.3, MCV 93.1, MCH 29.0, MCHC 31.2 L, RDW Std Deviation 42.8, RDW Coeff of Gustavo 12.5, Plt Count 236, MPV 11.4, Immature Gran % (Auto) 0.200, Neut % (Auto) 72.6 H, Lymph % (Auto) 21.5, [place] % (Auto) 4.6, Eos % (Auto) 0.5, Baso % (Auto) 0.6, Absolute Neuts (auto) 6.2, Absolute Lymphs (auto) 1.84, Nucleated RBC % 0 09/07/19 23:31: Sodium 140, Potassium 4.5, Chloride 107, Carbon Dioxide 25.0, Anion Gap 8, BUN 10, Creatinine 0.77, Estim Creat Clear Calc 98.96, Est GFR (MDRD) Af Amer 119, Est GFR (MDRD) Non-Af 98, BUN/Creatinine Ratio 12.9, Glucose 98, Calcium 8.8, Total Bilirubin 3.10 H, AST 277 H, ALT 423 H, Alkaline Phosphatase 201 H, Total Protein 7.6, Albumin 3.2, Globulin 4.4 H, Albumin/G lobulin Ratio 0.7 L, Lipase 81 09/07/19 23:31: Serum , Qual NEGATIVE 09/08/19 00:20: Urine Color Straw, Urine Clarity Clear, Urine pH 7.0, Ur Specific [place] 1.010, Urine Protein 15 H, Urine Glucose (UA) Normal, Urine Ketones 15 H, Urine Occult Blood Negative, Urine Nitrite Negative, Urine Bilirubin 3 H, Urine Urobilinogen 12 H, Ur Leukocyte Esterase 25 H, Urine RBC 0 SEEN, Urine WBC 5-10 SEEN, Ur Squamous Epith Cells 10-25 SEEN, Urine Bacteria 1+, Urine Mucus 0 SEEN 09/08/19 01:18: COVID-19 (TRICIA) Not Detected 09/08/19 05:30: WBC 9.2, RBC 4.29, Hgb 12.4, Hct 39.5, MCV 92.1, MCH 28.9, MCHC 31.4 L, RDW Std Deviation 41.6, RDW Coeff of Gustavo 12.4, Plt Count 251, MPV 11.4, Immature Gran % (Auto) 0.200, Neut % (Auto) 71.5 H, Lymph % (Auto) 22.5, [place] % (Auto) 5.3, Eos % (Auto) 0.1, Baso % (Auto) 0.4, Absolute Neuts (auto) 6.6, Absolute Lymphs (auto) 2.07, Nucleated RBC % 0 09/08/19 05:30: Sodium 141, Potassium 3.6, Chloride 108 H, Carbon Dioxide 25.0, Anion Gap 8, BUN 7, Creatinine 0.67, Estim Creat Clear Calc 113.73, Est GFR (MDRD) Af Amer 141, Est GFR (MDRD) Non-Af 117, BUN/Creatinine Ratio 10.5, Glucose 99, Calcium 8.1 L, Total Bilirubin 3.00 H, Direct Bilirubin 1.83 H, AST 367 H, ALT 458 H, Alkaline Phosphatase 208 H, Total Protein 6.8, Albumin 2.9 L, Globulin 3.9 Current Medications Doxazosin Mesylate (Cardura) 1 mg PO DAILY SID Hydromorphone HCl (Dilaudid Inj) 0.5 - 1 mg IV Q2H PRN PRN PRN Reason: Pain Score 1-10/10 Sodium Chloride () 1,000 mls @ 125 mls/hr IV .Q8H SID Last Admin: 09/08/19 03:16 Dose: 125 mls/hr Documented by: Piperacillin Sod/Tazobactam (Sod 3.375 gm/ Sodium Chloride) 50 mls @ 12.5 mls/hr IV Q8 SID Last Admin: 09/08/19 06:29 Dose: 12.5 mls/hr Documented by: Sodium Chloride () 250 mls @ 15 mls/hr IV .[id number] PRN PRN Reason: Saline Flush Last Infusion: 09/08/19 03:18 Dose: 0 mls/hr Documented by: Sodium Chloride () 250 mls @ 15 mls/hr IV .[id number] PRN PRN Reason: Additional IVPB Infusion Ondansetron HCl (Zofran) 4 mg IV Q8H PRN PRN PRN Reason: NAUSEA Sodium Chloride () 10 - 40 ml IV UD PRN PRN Reason: SALINE FLUSH Assessment/Plan All Active Problems (Last Updated 09/08/19 @ 07:[address] Patricia Harris MD) Bipolar depression (Acute) 23-year-old female with acute cholecystitis, biliary obstruction/elevated liver functions, GERD 1. N.p.o./IV fluids. Patient's liver function still elevated discussed with Dr. Brown he will plan for an ERCP today. 2. Discussed the procedure for tomorrow late AM laparoscopic cholecystectomy with cholangiograms possible open. Reviewed the anatomy with the patient. Review risks including but not limited to bleeding, infection, hernia, bile leak, retained gallstones requiring another procedure ERCP- Endoscopic Retrograde Cholangiopancreatography, injury to another organ (bile ducts, common bile duct, small bowel, etc.) may require transfer to tertiary care facility. And conversion to an open procedure. All questions were answered. 3. Continue IV Zosyn 4. Will start Protonix for reflux. Patricia Harris M.D. Pager: [phone] [facility] [address] [place] [address], Outpatient [place], [address] [place] [address] Office: [phone] Inpatient E&M: 89409 Init Hosp L2
--- NOTE | 2019-09-08 06:40 | RAD_ITS ---
CLINICAL HISTORY: PAIN COMPARISON: None. TECHNIQUE: 5 image(s) of an ERCP performed by Physician: MARY LUONG were submitted for evaluation. Fluoroscopic time not provided. FINDINGS: 5 intraprocedural fluoroscopic images demonstrate an endoscope in place. There is cannulization of a nondistended biliary tree. Filling defects in the distal common bile duct may indicate stones. The remainder of the visualized structures are unremarkable. RAD/ERCP Biliary Only IMPRESSION: 5 intraprocedural fluoroscopic images of the ERCP. Please see procedure report for further details. Electronically Signed: Juno Otto, at 17:23 EDT Tel , Service support ,
--- NOTE | 2019-09-08 07:25 | PCM.PN.SRG ---
Subjective: The patient is not having much pain this morning. She reported that she was having pain yesterday radiating to the back. - Physical Exam Vitals/I&O's: Vital Signs Temp Pulse Resp BP Pulse Ox 97.8 F 90 20 H 110/75 96 09/08/19 02:54 09/08/19 03:07 09/08/19 03:07 09/08/19 02:54 09/08/19 02:54 Oxygen Delivery Method Room Air Weight: 226 lb 6.636 oz Body Mass Index (BMI) 38.8 Intake and Output for Last 24 Hours 09/06/19 09/07/19 09/08/19 23:59 23:59 23:59 Intake Total 502.33 / 502.33 Balance 502.33 / 502.33 General: Alert, Oriented x3 Lungs: Normal air movement Cardiovascular: Regular rate, Regular Rhythm Abdomen: Soft, Non-Distended Laboratory Results 09/07/19 23:31: WBC 8.5, RBC 4.65, Hgb 13.5, Hct 43.3, MCV 93.1, MCH 29.0, MCHC 31.2 L, RDW Std Deviation 42.8, RDW Coeff of Gustavo 12.5, Plt Count 236, MPV 11.4, Immature Gran % (Auto) 0.200, Neut % (Auto) 72.6 H, Lymph % (Auto) 21.5, [place] % (Auto) 4.6, Eos % (Auto) 0.5, Baso % (Auto) 0.6, Absolute Neuts (auto) 6.2, Absolute Lymphs (auto) 1.84, Nucleated RBC % 0 09/07/19 23:31: Sodium 140, Potassium 4.5, Chloride 107, Carbon Dioxide 25.0, Anion Gap 8, BUN 10, Creatinine 0.77, Estim Creat Clear Calc 98.96, Est GFR (MDRD) Af Amer 119, Est GFR (MDRD) Non-Af 98, BUN/Creatinine Ratio 12.9, Glucose 98, Calcium 8.8, Total Bilirubin 3.10 H, AST 277 H, ALT 423 H, Alkaline Phosphatase 201 H, Total Protein 7.6, Albumin 3.2, Globulin 4.4 H, Albumin/Globulin Ratio 0.7 L, Lipase 81 09/07/19 23:31: Serum , Qual NEGATIVE 09/08/19 00:20: Urine Color Straw, Urine Clarity Clear, Urine pH 7.0, Ur Specific [place] 1.010, Urine Protein 15 H, Urine Glucose (UA) Normal, Urine Ketones 15 H, Urine Occult Blood Negative, Urine Nitrite Negative, Urine Bilirubin 3 H, Urine Urobilinogen 12 H, Ur Leukocyte Esterase 25 H, Urine RBC 0 SEEN, Urine WBC 5-10 SEEN, Ur Squamous Epith Cells 10-25 SEEN, Urine Bacteria 1+, Urine Mucus 0 SEEN 09/08/19 01:18: COVID-19 (TRICIA) Not Detected 09/08/19 05:30: WBC 9.2, RBC 4.29, Hgb 12.4, Hct 39.5, MCV 92.1, MCH 28.9, MCHC 31.4 L, RDW Std Deviation 41.6, RDW Coeff of Gustavo 12.4, Plt Count 251, MPV 11.4, Immature Gran % (Auto) 0.200, Neut % (Auto) 71.5 H, Lymph % (Auto) 22.5, [place] % (Auto) 5.3, Eos % (Auto) 0.1, Baso % (Auto) 0.4, Absolute Neuts (auto) 6.6, Absolute Lymphs (auto) 2.07, Nucleated RBC % 0 09/08/19 05:30: Sodium 141, Potassium 3.6, Chloride 108 H, Carbon Dioxide 25.0, Anion Gap 8, BUN 7, Creatinine 0.67, Estim Creat Clear Calc 113.73, Est GFR (MDRD) Af Amer 141, Est GFR (MDRD) Non-Af 117, BUN/Creatinine Ratio 10.5, Glucose 99, Calcium 8.1 L, Total Bilirubin 3.00 H, Direct Bilirubin 1.83 H, AST 367 H, ALT 458 H, Alkaline Phosphatase 208 H, Total Protein 6.8, Albumin 2.9 L, Globulin 3.9 Current Medications Doxazosin Mesylate (Cardura) 1 mg PO DAILY SID Hydromorphone HCl (Dilaudid Inj) 0.5 - 1 mg IV Q2H PRN PRN PRN Reason: Pain Score 1-10/10 Sodium Chloride () 1,000 mls @ 125 mls/hr IV .Q8H SID Last Admin: 09/08/19 03:16 Dose: 125 mls/hr Documented by: Piperacillin Sod/Tazobactam (Sod 3.375 gm/ Sodium Chloride) 50 mls @ 12.5 mls/hr IV Q8 SID Last Admin: 09/08/19 06:29 Dose: 12.5 mls/hr Documented by: Sodium Chloride () 250 mls @ 15 mls/hr IV .[id number] PRN PRN Reason: Saline Flush Last Infusion: 09/08/19 03:18 Dose: 0 mls/hr Documented by: Sodium Chloride () 250 mls @ 15 mls/hr IV .[id number] PRN PRN Reason: Additional IVPB Infusion Pantoprazole Sodium 40 mg/ (Sodium Chloride) 110 mls @ 330 mls/hr IV Q24 SID Ondansetron HCl (Zofran) 4 mg IV Q8H PRN PRN PRN Reason: NAUSEA Sodium Chloride () 10 - 40 ml IV UD PRN PRN Reason: SALINE FLUSH Medical Necessity - Tobacco Use Smoking Status: Former smoker Tobacco Use: Cigarettes Assessment/Plan 23-year-old female with obstructive jaundice 1. The patient likely has obstructive jaundice due to gallstones. She had dilated duct on ultrasound and her LFTs are elevated. She also has gallstones on ultrasound. I recommend ERCP today and Dr. Harris will complete the laparoscopic cholecystectomy tomorrow. 2. I discussed ERCP detail with the patient. I discussed the risks including but not limited to bleeding, infection, perforation of the bile duct or bowel, pancreatitis. The patient understands. She would like to proceed. COVID test was ordered last night and is pending. Yazan Brown MD Pager: [facility] [address] [place] [address], [address] [place] [address] Office:
--- NOTE | 2019-09-08 10:43 | NURSING ---
Addendum entered by Merle Mayo 09/08/19 10:44: pt reported that this RN did not need to contact any family members for update as she was keeping them updated Original Note: pt transported off unit for ERCP at 1030 via bed
[2019-09-08] MEDS: Lactated Ringers 1,000 ML 100 ML IV (12:00)
--- NOTE | 2019-09-08 13:08 | OP.CCLET_ITS ---
09/08/2019 London Ferris Re : ERCP procedure for Jagruti Landers [place] This procedure was performed on Sunday, September 08, 2019. My impressions and recommendations are as follows: Impressions : - A biliary sphincterotomy was performed. - The biliary tree was swept and sludge was found. - One plastic stent was placed into the ventral pancreatic duct. Recommendations : - Return patient to hospital [facility] for ongoing care. - Clear liquid diet. - Confirm spontaneous stent passage by performing an upright abdominal x-ray in 1 week. My findings are described in the full procedure note, which is enclosed. If I can be of further assistance, please feel free to contact me at Doctor phone number(s): , Work: . Sincerely, Yazan Brown MD 09/08/2019 1:08:02 PM This report has been signed electronically.
--- NOTE | 2019-09-08 13:08 | OP.ERCP_ITS ---
Patient Name: Jagruti Landers Procedure Date: 09/08/2019 11:50 AM Date of : 1995 Age: 23 Procedure: ERCP Indications: Elevated liver enzymes Providers: Yazan Brown MD Medicines: General Anesthesia Patient Profile: This is a 23 year old female. Refer to note in patient chart for documentation of history and physical. Complications: No immediate complications. Procedure: Pre-Anesthesia Assessment: - Prior to the procedure, a History and Physical was performed, and patient medications and allergies were reviewed. The patient's tolerance of previous anesthesia was also reviewed. The risks and benefits of the procedure and the sedation options and risks were discussed with the patient. All questions were answered, and informed consent was obtained. Prior Anticoagulants: The patient has taken no previous anticoagulant or antiplatelet agents. After reviewing the risks and benefits, the patient was deemed in satisfactory condition to undergo the procedure. After obtaining informed consent, the scope was passed under direct vision. Throughout the procedure, the patient's blood pressure, pulse, and oxygen saturations were monitored continuously. The [id number] endoscope was introduced through the mouth, and advanced to the duodenum and used to inject contrast into the bile duct and ventral pancreatic duct. The ERCP was accomplished without difficulty. The patient tolerated the procedure well. Scope In: 12:24:34 PM Scope Out: 12:37:09 PM Total Procedure Duration Time 0 hours 12 minutes 35 seconds Findings: A 0.035 inch x 260 cm straight Dreamwire was placed into the pancreatic duct several times trying to cannulate the CBD. The wire was left in the pancreatic duct and a new dreamwire was passed into the biliary tree. The sphincterotome was passed over the guidewire and the bile duct was then deeply cannulated. Contrast was injected. Biliary sphincterotomy was made with a monofilament sphincterotome using ERBE electrocautery. There was no post-sphincterotomy bleeding. The biliary tree was swept with a 12 mm balloon starting at the bifurcation. Sludge was swept from the duct. One 5 Fr by 5 cm plastic stent with a 3/4 external pigtail and no internal flaps was placed into the ventral pancreatic duct. Clear fluid flowed through the stent. The stent was in good position. Impression: - A biliary sphincterotomy was performed. - The biliary tree was swept and sludge was found. - One plastic stent was placed into the ventral pancreatic duct. Recommendation: - Return patient to hospital [facility] for ongoing care. - Clear liquid diet. - Confirm spontaneous stent passage by performing an upright abdominal x-ray in 1 week. Procedure Code(s): --- Professional --- 88202, Endoscopic retrograde cholangiopancreatography (ERCP); with placement of endoscopic stent into biliary or pancreatic duct, including pre- and post-dilation and guide wire passage, when performed, including sphincterotomy, when performed, each stent [id number], 51, Endoscopic retrograde cholangiopancreatography (ERCP); with removal of calculi/debris from biliary/pancreatic duct(s) Diagnosis Code(s): --- Professional --- R74.8, Abnormal levels of other serum enzymes CPT copyright 2017 [employer]. All rights reserved. The codes documented in this report are preliminary and upon computer language coder review may be revised to meet current compliance requirements. Yazan Brown MD 09/08/2019 1:08:02 PM This report has been signed electronically. Number of Addenda: 0 Note Initiated On: 09/08/2019 11:50 AM
[2019-09-08] MEDS: HYDROmorphone 0.5 MG/0.5 ML SYRINGE IV ×2 (13:54→17:52)
[2019-09-08] MEDS: Doxazosin 1 MG Tablet PO (17:47)
[2019-09-08] MEDS: ARIPiprazole 5 MG Tablet PO (21:34)
[2019-09-09] VITALS (17 sets, daily range): BP systolic 101–140; BP diastolic 60–78; PULSE 82–101; RESP 16–18; TEMP 36.3–37.2; O2SAT 93–98; BMI 39.2
--- NOTE | 2019-09-09 | GALL_PTH ---
PATIENT: TRUONG SEPULVEDA LOC: MS3 U#:[id number] AGE/SX: 23/F ROOM: MS321 RE09/08/[address]: Dr. Patricia Harris MD : 1995 BED: 1 DIS: 09/10/2019 SPEC #: [id number] RECD: 09/10/19 08:21 STATUS: NAOMI CHASE #: [id number] HARVEY: 09/09/19 00:[address]: Patricia Harris DEPT: SURGICAL PATHOLOGY RECD BY: Tyrese Doyle ENTERED: 09/10/19 08:58 SP TYPE: KEISHA OH DR: Dr. London Ferris MD Tissues: Gallbladder, NOS Procedures: Surgery Specimen Level III HEADER OPERATION: Laparoscopic cholecystectomy with IOC PRE-OP DIAGNOSIS: Acute cholecystitis TISSUE SUBMITTED: Gallbladder MICROSCOPIC DIAGNOSIS Gallbladder, cholecystectomy: Chronic cholecystitis and cholelithiasis. AM:oxana 09/13/19 MICROSCOPIC DESCRIPTION Slides are reviewed. GROSS DESCRIPTION Received is one container labeled with the patient's name and designated gallbladder. The specimen consists of a gallbladder measuring 7 cm in length and up to 3 cm in diameter. The external surface is pink-burroughs, smooth and glistening for the most part. Focally it is granular, hemorrhagic and contains cautery artifact. The gallbladder contains green-yellow mucoid bile and multiple, mulberry, yellow stones measuring in aggregate 3 x 2.5 x 0.3 cm and 0.2 to 0.3 cm in greatest dimension. The mucosa is bile-stained and without any mass lesions. The gallbladder wall measures up to 0.3 cm in thickness. Mottle Lay Up Operator sections from the gallbladder and the cystic duct are submitted in one cassette. / SJ:oxana 09/10/19 TC:3 CPT: 00509
[2019-09-09] MEDS: 0.9% Saline Lock 10 ML Syringe IV ×3 (01:51→06:21)
[2019-09-09] MEDS: HYDROmorphone 0.5 MG/0.5 ML SYRINGE IV ×5 (01:51→14:29)
[2019-09-09] MEDS: Ondansetron 4 MG/2 ML Vial IV ×2 (04:14→14:29)
[2019-09-09] MEDS: 0.9% Normal Saline 1,000 ML 125 ML IV ×3 (05:49→21:59)
[2019-09-09 06:12] LABS: Absolute Lymphocyte Count 1.93 X10^3/uL (0.83-4.51); Absolute Neutrophil Count 6.9 X10^3/uL (2.0-7.7); Basophil# 0.02 X10^3/uL; Basophil% 0.2 % (0-1); Hematocrit 38.8 % (37-47); Hemoglobin 12.4 g/dL (12.0-15.0); Lymphocyte # 1.93 X10^3/ul (4.0); Lymphocyte % 20.7 % (19-41); Mean Corpuscular Volume 90.9 fL (81-99); Mean Platelet Vol. 11.7 fl (6.2-12.0); Monocyte# 0.41 X10^3/uL; Monocyte% 4.4 % (0-10); NRBC Flagged by Analyzer 0 % (0-5); Neutrophil # 6.93 X10^3/uL (2.7-7.7); Neutrophil % 74.3 % (47-70); POSITIVE COUNT YES; Platelet Count 126 K/mm3 (150-450); RBC Distribution Width CV 12.5 % (11.6-14.6); RBC Distribution Width SD 41.5 fl (35.1-43.9); Red Blood Count 4.27 M/mm3 (4.2-5.4); White Blood Count 9.3 K/mm3 (4.4-11.0)
[2019-09-09 06:15] LABS: Differential Indicated SCAN CRITERIA MET
[2019-09-09 06:31] LABS: Differential Comment SCANNED
[2019-09-09 06:49] LABS: AST(SGOT) 105 U/L (15-37); Alanine Aminotransfer ALT/SGPT 289 U/L (13-56); Albumin, Serum 2.7 g/dL (3.2-5.0); Alkaline Phosphatase 168 U/L (45-117); Anion Gap 9 (5-15); BUN 5 mg/dL (7-18); BUN/Creat Ratio 7.5 RATIO (10-20); Bilirubin, Direct 0.43 mg/dL (0.00-0.30); Calcium,Total 8.3 mg/dL (8.5-10.1); Chloride 109 mmol/L (98-107); Creatinine, Serum 0.67 mg/dL (0.55-1.02); EST Glomerular Filtration Rate 117 mL/min (>60); Est Glom Filt Rate - Afr Amer 141 mL/min (>60); Estimated Creatinine Clearance 113.73 ml/min; Globulin 3.9 g/dL (2.2-4.2); Glucose 79 mg/dL (74-106); Potassium 3.7 mmol/L (3.5-5.1); Protein, Total 6.6 g/dL (6.4-8.2); Sodium Level 139 mmol/L (136-145)
--- NOTE | 2019-09-09 07:17 | PCM.PN.SRG ---
Patient Problems: Active and Suspected Problems (Last Updated 09/08/19 @ 07:[address] Patricia Harris MD) Bipolar depression (Acute) Subjective: Patient still complains of some right flank/back pain controlled pain meds, denies any epigastric pain did not have a nausea or vomiting with clears after the ERCP yesterday. - Physical Exam Vitals/I&O's: Vital Signs Temp Pulse Resp BP Pulse Ox 98.9 F 84 16 107/60 96 09/09/19 06:12 09/09/19 06:12 09/09/19 06:12 09/09/19 06:12 09/09/19 06:12 Oxygen Delivery Method Room Air Weight: 229 lb 15.074 oz Body Mass Index (BMI) 39.2 Intake and Output for Last 24 Hours 09/07/19 09/08/19 09/09/19 23:59 23:59 23:59 Intake Total 3174.58 / 3194.58 1133 / 1133 Output Total 800 / 1650 1050 / 1050 Balance 2374.58 / 1544.58 83 / 83 General: Alert, Oriented x3, Cooperative, No apparent distress HEENT: Atraumatic Lungs: Normal air movement Cardiovascular: Regular rate Abdomen: Soft, Non-Distended, Tender - Minimally right upper quadrant/flank Extremities: No clubbing, No cyanosis, No edema Laboratory Results 09/09/19 05:50: WBC 9.3, RBC 4.27, Hgb 12.4, Hct 38.8, MCV 90.9, MCH 29.0, MCHC 32.0, RDW Std Deviation 41.5, RDW Coeff of Gustavo 12.5, Plt Count 126 L, MPV 11.7, Immature Gran % (Auto) 0.400, Neut % (Auto) 74.3 H, Lymph % (Auto) 20.7, Will % (Auto) 4.4, Eos % (Auto) 0.0, Baso % (Auto) 0.2, Absolute Neuts (auto) 6.9, Absolute Lymphs (auto) 1.93, Nucleated RBC % 0, Differential Comment SCANNED 09/09/19 05:50: Sodium 139, Potassium 3.7, Chloride 109 H, Carbon Dioxide 21.0, Anion Gap 9, BUN 5 L, Creatinine 0.67, Estim Creat Clear Calc 113.73, Est GFR (MDRD) Af Amer 141, Est GFR (MDRD) Non-Af 117, BUN/Creatinine Ratio 7.5 L, Glucose 79, Calcium 8.3 L, Total Bilirubin 1.30 H, Direct Bilirubin 0.43 H, AST 105 H, ALT 289 H, Alkaline Phosphatase 168 H, Total Protein 6.6, Albumin 2.7 L, Globulin 3.9 Current Medications Aripiprazole (Abilify) 5 mg PO DAILY [facility] Last Admin: 09/08/19 21:34 Dose: 5 mg Documented by: Doxazosin Mesylate (Cardura) 1 mg PO DAILY [facility] Last Admin: 09/08/19 17:47 Dose: 1 mg Documented by: Hydromorphone HCl (Dilaudid Inj) 0.5 - 1 mg IV Q2H PRN PRN PRN Reason: Pain Score 1-1010 Last Admin: 09/09/19 06:20 Dose: 0.5 mg Documented by: Sodium Chloride () 1,000 mls @ 125 mls/hr IV .Q8H [facility] Last Admin: 09/09/19 05:49 Dose: 125 mls/hr Documented by: Piperacillin Sod/Tazobactam (Sod 3.375 gm/ Sodium Chloride) 50 mls @ 12.5 mls/hr IV Q8 [facility] Last Admin: 09/09/19 06:05 Dose: 12.5 mls/hr Documented by: Sodium Chloride () 250 mls @ 15 mls/hr IV .[id number] PRN PRN Reason: Saline Flush Last Infusion: 09/09/19 06:06 Dose: 0 mls/hr Documented by: Sodium Chloride () 250 mls @ 15 mls/hr IV .[id number] PRN PRN Reason: Additional IVPB Infusion Pantoprazole Sodium 40 mg/ (Sodium Chloride) 110 mls @ 330 mls/hr IV Q24 [facility] Last Infusion: 09/08/19 08:48 Dose: Infused Documented by: Ondansetron HCl (Zofran) 4 mg IV Q8H PRN PRN PRN Reason: NAUSEA Last Admin: 09/09/19 04:14 Dose: 4 mg Documented by: Sodium Chloride () 10 - 40 ml IV UD PRN PRN Reason: SALINE FLUSH Last Admin: 09/09/19 06:21 Dose: 10 ml Documented by: Medical Necessity - Tobacco Use Smoking Status: Former smoker Tobacco Use: Cigarettes Assessment/Plan All Active Problems (Last Updated 09/08/19 @ 07:[address] Patricia Harris MD) Bipolar depression (Acute) 23-year-old female with acute cholecystitis, biliary obstruction/elevated liver functions, GERD, status post ERCP and sphincterotomy 1. Patient n.p.o./IV fluids, 2. Laparoscopic cholecystectomy today at 1045. 3. Continue IV Zosyn 4. Continue Protonix Patricia Harris M.D. Pager: [phone] [facility] [address] [place] [address], [facility], [address] [place] [address] Office: [phone]
--- NOTE | 2019-09-09 10:45 | RAD_ITS ---
CLINICAL HISTORY: CHOLANGIOGRAM, LAP DARIUS COMPARISON: Prior day TECHNIQUE: Multiple sonographic image(s) of cholangiogram performed by Physician: MARY LUONG were submitted for evaluation. Fluoroscopy time totaled 19.1 seconds. FINDINGS: Multiple fluoroscopic images are provided for review documenting cannulation of the biliary tree with opacification of the common bile duct, and subsequent opacification of the proximal small bowel. The gallbladder is opacified started images filling defect is seen within the gallbladder which may represent a stone. Common bile duct shows normal caliber without filling defects. RAD/Cholangiogram/ O R,Initial IMPRESSION: Multiple fluoroscopic images document opacification of the biliary system. Possible small gallstone. No filling defects within the common bile duct. Please see associated procedure report for further details. Electronically Signed: Juno Otto, at 12:35 EDT Tel , Service support ,
--- NOTE | 2019-09-09 10:49 | NURSING ---
pt transported off unit via bed at 0945
[2019-09-09] MEDS: Lactated Ringers 1,000 ML 100 ML IV (11:30)
--- NOTE | 2019-09-09 12:04 | PCM.OPRPT ---
Report of Operation Date of Procedure: 09/09/19 Pre-Operative Diagnosis: Acute cholecystitis, elevated LFTs Post-Operative Diagnosis: Same Surgery/Procedure Performed:: Laparoscopic cholecystectomy with cholangiograms Type of Anesthesia:: General/Supplemental Anesthesiologist: Jose Prince Special Medications: Patient is on Zosyn 3.375 g IV every 8 on the floor Specimen's removed: Gallbladder Estimated Blood Loss (mL): < 10 cc Fluids Replaced: 700 cc Description of Procedure: Indications this is a 23 year-old female who developed abdominal pain/nausea/vomiting and on workup was found to have cholelithiasis, gallbladder wall of 3.3 mm consistent with acute cholecystitis and elevated liver functions with common bile duct of 7.7 mm. Patient went an ERCP yesterday with a sphincterotomy, this morning's LFTs have improved. Laparoscopic cholecystectomy was elected. Description procedure: The patient was placed on operating table in supine position. General Anesthesia was induced. A timeout was completed verifying correct patient, procedure, site, position and special equipment prior to beginning procedure. The abdomen was prepped and draped in usual sterile fashion. An incision was made in the natural skin line above the umbilicus. The fascia was elevated and incised. The peritoneum was elevated and incised. Entry into the peritoneum was confirmed visually and no bowel was noted in the vicinity of the incision. Mims trocar was placed. The abdomen was insufflated with carbon dioxide to a pressure of 12-15 mmHg. Patient tolerated insufflation well. The laparoscope was then inserted and abdomen inspected. No injuries from initial trocar placement were noted. Additional trochars were then inserted in the following locations 5 mm trocar in the epigastrium and 2 more 5 mm trochars along the right costal margin. The abdomen was inspected no abnormalities were found. The table is placed in reverse Trendelenburg position with the right side up. The adhesions between the gallbladder and omentum were lysed sharply. The dome of the gallbladder was grasped with atraumatic grasper passed through the lateral port and retracted over the dome of the liver. Infundibulum was then grasped with atraumatic grasper through the midclavicular port and retracted to the right lower quadrant. This maneuver exposed Calot's triangle. The peritoneum overlying the gallbladder infundibulum was then incised and cystic duct and artery identified and circumferentially dissected. Cholangiogram catheter was introduced using Angiocath. A clip was placed on the distal cystic duct and scissors were used to access the cystic duct. Cholangiogram catheter was used for cholangiograms. The cholangiogram showed good filling of the common bile duct into the duodenum with no filling defects, good filling of the right and left bile ducts as well. The cystic duct and artery were then doubly clipped and divided close to the gallbladder. The gallbladder then dissected from its peritoneal attachments by electrocautery. Hemostasis was checked and the gallbladder and contained stones were removed using the endoscopic retrieval bag through the umbilical port. The gallbladder is passed off table as specimen. The gallbladder fossa was copiously irrigated with saline and hemostasis obtained. There is no evidence of bleeding from the gallbladder fossa or cystic artery leakage of bile from the cystic duct stump. Secondary trochars removed under direct vision. No bleeding was noted the trocar sites. The laparoscope was withdrawn and umbilical trocar removed. The abdomen was allowed to collapse. The fascia of the 12 mm trocar was closed with a [id number] 0 Vicryl suture. The skin was closed with sutures of 4-0 Monocryl and Steri-Strips. The orogastric tube was removed and the patient was extubated. The patient tolerated procedure well and was taken to the postanesthesia care unit in stable condition. - Complications none
[2019-09-09] MEDS: Bupivacaine Mpf 0.5% 30 ML VIAL (12:07)
--- NOTE | 2019-09-09 12:11 | PCM.DC.GB ---
Discharge Diet: Light diet - advance as tolerated Discharge Activity: May not drive while taking narcotic pain medications. Lifting Restrictions: No lifting> 20 pounds x 2 weeks, no strenuous exercise for 5 weeks Call your doctor if your incision/area has: Continuous Slow Oozing, Sudden Increased Bleeding, Increased Pain/ Swelling, Increased Redness, Foul Smelling Discharge, Swelling at the incision site Call your doctor if you observe: Fever of 101 or Higher Remove Dressing in (days):: 1 - Okay to remove OpSite tomorrow,, Steri-Strips down for 7 to 10 days he did not follow-up in 10 days okay to remove Additional Instructions: Okay to take ibuprofen 400-600 mg PO q6hr PRN along with the hydrocodone/acetaminophen. Avoid Tylenol since there is already Tylenol in the hydrocodone/acetaminophen. Take all pain meds with food. Hydrocodone/acetaminophen can cause constipation recommend taking daily stool softener (i.e. Colace/docusate) while taking the pain meds. Recommend starting some MiraLAX in 1 to 2 days if no bowel movement. If still no bowel movement following day recommend taking magnesium citrate half the bottle and waiting 4-6 hours if still no results take the other half the bottle. Allergies/Adverse Reactions: Allergies peanut Adverse Reaction (Verified 09/08/19 02:26) Anaphylaxis Medications to take at Discharge Prazosin HCl 1 mg PO DAILY 09/07/19 Aripiprazole [Abilify] 5 mg PO DAILY 09/08/19 Hydrocodone Bitart/Apap 5-325 [[place] 5MG-325MG] 1 tablet PO Q6H PRN PRN 4 Days #25 tablet 09/09/19 Pantoprazole Sodium 40 mg PO DAILY #30 tablet. 09/09/19 The following prescriptions were given: Hydrocodone Bitart/Apap 5-325 [[place] 5MG-325MG] 1 tablet PO Q6H PRN PRN 4 Days #25 tablet PRN Reason: Pain Transmission Status: Sent to [facility] Primary Care Physician: Lonodn Ferris MD [Primary Care Provider] - Test Results: Test results from this visit will be discussed in further detail at your follow-up appointment, if applicable. Please Follow Up With: Patricia Harris MD - After 5 PM and on the weekends call [phone] with any concerns When: Call the office for a follow-up appointment in 2 weeks virtual/phone Proposed Discharge Date: 09/09/19
--- NOTE | 2019-09-09 13:25 | CPS ---
started by nursing
[2019-09-09] MEDS: Docusate Sodium 100 MG Capsule PO (16:11)
[2019-09-09] MEDS: Doxazosin 1 MG Tablet PO (16:11)
[2019-09-09] MEDS: ARIPiprazole 5 MG Tablet PO (16:11)
[2019-09-09] MEDS: HYDROcodone Bitartrate/Apap 5/325 Tablet PO ×2 (16:11→20:19)
[2019-09-10] MEDS: HYDROcodone Bitartrate/Apap 5/325 Tablet PO ×2 (00:58→08:37)
[2019-09-10 04:00] VITALS: BP 113/68; PULSE 97; RESP 16; TEMP 36.7; O2SAT 96
[2019-09-10] MEDS: 0.9% Normal Saline 1,000 ML 125 ML IV (05:26)
[2019-09-10 07:34] VITALS: BP 131/75; PULSE 108; RESP 18; TEMP 36.9; O2SAT 94
[2019-09-10] MEDS: ARIPiprazole 5 MG Tablet PO (07:35)
[2019-09-10] MEDS: Doxazosin 1 MG Tablet PO (07:36)
[2019-09-10] MEDS: Docusate Sodium 100 MG Capsule PO (07:36)
--- NOTE | 2019-09-10 07:57 | PN.SURG_ITS ---
Patient Problems: Active and Suspected Problems (Last Updated 09/08/19 @ 07:[address] Patricia Harris MD) Bipolar depression (Acute) Subjective: Patient only has pain at incisions, tolerating diet, normally has constipation last bowel was 2 days before admission - Physical Exam Vitals/I&O's: Vital Signs Temp Pulse Resp BP Pulse Ox 98.4 F 108 H 18 131/75 H 94 09/10/19 07:34 09/10/19 07:34 09/10/19 07:34 09/10/19 07:34 09/10/19 07:34 Oxygen Flow Rate (L/min) 2 Oxygen Delivery Method Room Air Weight: 229 lb 15.074 oz Body Mass Index (BMI) 39.2 Intake and Output for Last 24 Hours 09/08/19 09/09/19 09/10/19 23:59 23:59 23:59 Intake Total 3174.58 / 3194.58 5553.84 / 5903.84 2042.50 / 2042.50 Output Total 800 / 1650 1700 / 2000 900 / 900 Balance 2374.58 / 1544.58 3853.84 / 3903.84 1142.50 / 1142.50 Current Medications Hydrocodone Bitart/Acetaminophen ([place] 5mg-325mg) 1 - 2 tablet PO Q4H PRN PRN PRN Reason: Pain Score 1-10/10 Last Admin: 09/10/19 00:58 Dose: 2 tablet Documented by: Aripiprazole (Abilify) 5 mg PO DAILY [facility] Last Admin: 09/10/19 07:35 Dose: 5 mg Documented by: Docusate Sodium (Colace) 100 mg PO DAILY [facility] Last Admin: 09/10/19 07:36 Dose: 100 mg Documented by: Doxazosin Mesylate (Cardura) 1 mg PO DAILY [facility] Last Admin: 09/10/19 07:36 Dose: 1 mg Documented by: Hydromorphone HCl (Dilaudid Inj) 0.5 mg IV Q2H PRN PRN PRN Reason: Pain Score 9-10/10 Last Admin: 09/09/19 14:29 Dose: 0.5 mg Documented by: Sodium Chloride () 1,000 mls @ 125 mls/hr IV .Q8H [facility] Last Infusion: 09/10/19 07:41 Dose: 0 mls/hr Documented by: Sodium Chloride () 250 mls @ 15 mls/hr IV .[id number] PRN PRN Reason: Saline Flush Last Infusion: 09/09/19 06:06 Dose: 0 mls/hr Documented by: Sodium Chloride () 250 mls @ 15 mls/hr IV .[id number] PRN PRN Reason: Additional IVPB Infusion Pantoprazole Sodium 40 mg/ (Sodium Chloride) 110 mls @ 330 mls/hr IV Q24 [facility] Last Admin: 09/08/19 08:28 Dose: 330 mls/hr Documented by: Ibuprofen (Motrin) 400 - 600 mg PO Q6 PRN PRN Reason: Pain Score 1-10/10 Ondansetron HCl (Zofran) 4 mg IV Q8H PRN PRN PRN Reason: NAUSEA Last Admin: 09/09/19 14:29 Dose: 4 mg Documented by: Polyethylene Glycol (Miralax) 17 gm PO X1 ONE Stop: 09/10/19 07:54 Sodium Chloride () 10 - 40 ml IV UD PRN PRN Reason: SALINE FLUSH Last Admin: 09/09/19 06:21 Dose: 10 ml Documented by: Medical Necessity - Tobacco Use Smoking Status: Former smoker Tobacco Use: Cigarettes Assessment/Plan All Active Problems (Last Updated 09/08/19 @ 07:[address] Patricia Harris MD) Bipolar depression (Acute) 23-year-old female with acute cholecystitis, biliary obstruction/elevated liver functions, GERD, status post ERCP and sphincterotomy 1. Regular diet tolerating?DC this morning 2. Constipation we will have the patient on stool softeners as well as MiraLAX today with instructions to take magnesium citrate at home if no bowel movement today 3. Continue Protonix, prescription to DC 4. Continue pain control with Vania Harris M.D. Pager: [phone] [facility] [address] [place] [address], [facility], [address] [place] [address] Office: [phone]
[2019-09-10] MEDS: Polyethylene Glycol 3350 17 GM PACKET PO (08:38)
--- NOTE | 2019-09-10 09:16 | NURSING ---
Protonix administration scheduled for this morning unable to be given on EMAR due to unsent pharmacy activity from the previous dose. Unable to reprocess information to send to pharmacy as directed in [employer] prompts. Contacted Julianna (pharmacist) who will reprocess the order and relabel the medication so that barcode scanning and administration on the EMAR can be completed. Dose verified with Yana ALCOCER.
[2019-09-10 10:15] VITALS: BP 120/63; PULSE 118; RESP 18; TEMP 36.8; O2SAT 94
[2019-09-10] MEDS: Magnesium Citrate 300 ML 150 ML PO (11:07)
[2019-09-10 12:50] VITALS: BP 118/82; PULSE 106; RESP 16; TEMP 36.9; O2SAT 94
== END 2019-09-10 14:25 | disposition home or self-care (01) ==
LOC: ED 09-08 00:24 → MS3 09-08 00:55
PROVIDERS: Surgery; Admitting Provider Surgery; Emergency Provider Emergency Medicine; PCP Family Medicine; Visit Provider Surgery
PROC: (CPT 43260; principal; 2019-09-08 11:00)
DX: K80.10 Calculus of gallbladder with chronic cholecystitis without obstruction (principal); K80.51 Calculus of bile duct without cholangitis or cholecystitis with obstruction; F31.9 Bipolar disorder, unspecified; Z87.891 Personal history of nicotine dependence; K21.9 Gastro-esophageal reflux disease without esophagitis
CPT/HCPCS: 43264; 43274; 47563; 36415; 74300; 74328; 76000; 76705; 80048; 80053; 80076; 81001; 83690; 84703; 85025; 87635; 88304; 93005; 94799; 96361; 96365; 96366; 96367; 96375; 96376; 99218; 99284; J7030; J7050; J7120; A4216; C1769; G0378; J1610; J2405; U0003

== ENCOUNTER 2021-07-08 11:15 | Inpatient (IN) | payer MEDICAID, SELFPAY ==
[2021-07-08] VITALS (45 sets, daily range): BP systolic 110–159; BP diastolic 55–103; PULSE 94–124; TEMP 36.1–36.6; O2SAT 85–100; BMI 43.4
[2021-07-08 11:15] LABS: ROM Internal Control Test YES-OK TO RESULT pt. (Internal QC)
[2021-07-08 11:16] LABS: ROM Patient Test POSITIVE (Negative)
[2021-07-08] MEDS: Lactated Ringers 1,000 ML 50 ML IV (12:00)
[2021-07-08 12:22] LABS: Absolute Lymphocyte Count 1.81 X10^3/uL (0.83-4.51); Absolute Neutrophil Count 10.5 X10^3/uL (2.0-7.7); Basophil# 0.04 X10^3/uL; Basophil% 0.3 % (0-1); Eosinophil# 0.03 X10^3/uL; Eosinophils% 0.2 % (0-5); Hematocrit 36.6 % (37-47); Hemoglobin 12.2 g/dL (12.0-15.0); Lymphocyte # 1.81 X10^3/ul (0.83-4.51); Lymphocyte % 13.8 % (19-41); Mean Corp Hgb Conc 33.3 g/dL (32-36); Mean Corpuscular Volume 87.1 fL (81-99); Mean Platelet Vol. 11.7 fl (6.2-12.0); Monocyte# 0.66 X10^3/uL; NRBC Flagged by Analyzer 0 % (0-5); Neutrophil % 79.9 % (47-70); Platelet Count 209 K/mm3 (150-450); RBC Distribution Width CV 13.1 % (11.6-14.6); RBC Distribution Width SD 40.8 fl (35.1-43.9); White Blood Count 13.2 K/mm3 (4.4-11.0)
[2021-07-08] MEDS: Acetaminophen 500 MG Tablet PO (14:19)
[2021-07-08] MEDS: Oxytocin 30 units/NS 500 ml 30 UNITS/500 ML IV.SOLN IV (14:23)
[2021-07-08] MEDS: fentaNYL 100 MCG/2 ML Ampul IV (14:54)
[2021-07-08] MEDS: Lactated Ringers 500 ML 999 ML IV ×2 (16:41→19:58)
[2021-07-08] MEDS: fentaNYL-bupivacaine (epidural) 100 ML BAG EPIDURAL (17:34)
[2021-07-08] MEDS: Lactated Ringers 1,000 ML 200 ML IV (20:04)
[2021-07-08] MEDS: Ondansetron 4 MG/2 ML Vial IV (20:13)
[2021-07-08] MEDS: Oxytocin 30 units/NS 500 ml 30 UNITS/500 ML IV.SOLN 334 UNITS IV (21:56)
--- NOTE | 2021-07-08 22:13 | HP.PCM.OB_ITS ---
HPI - General General Date of Admission: 07/08/21 HPI Narrative TRUONG SEPULVEDA, is a 25 F who presents at 39w3d with SROM at 0600 this morning for clear fluid and then contractions began. Denied any vaginal bleeding or other complaints. complicated by Morbid obesity, depression, thyroid disorder, anxiety, and PTSD. Maternal Data Information KATYA Calculator Estimated Delivery Date Method Current WG Current Estimate 07/12/21 Manual 39w 3d Final KATYA: 07/12/21 [facility] Medical History (Updated 07/08/21 @ 22:27 by Soni Gonzalez CNM) Bipolar depression Home Medications pantoprazole 40 mg PO DAILY #30 tablet. 09/09/19 [Rx Last Taken 07/08/21 09:00] aspirin 81 mg PO DAILY 07/08/21 [History Last Taken 07/07/21 09:00] docusate sodium [Colace] 100 mg PO DAILY 07/08/21 [History Last Taken 07/07/21 0900] lamotrigine [Lamictal] 25 mg PO QODAY 07/08/21 [History Last Taken 07/07/21 09:00] Allergy/AdvReac Type Severity Reaction Status Date / Time peanut Allergy Anaphylaxis Verified 07/08/21 10:43 Social History Smoking Status: Former smoker History Elective abortions Hx Para 0 Spontaneous abortions Hx # Term Pregnancies Ectopic pregnancies Hx # Pregnancies Multiple births # of living children NST FHR Rate Baby A Baseline: 135 Variability:: Moderate Accelerations:: 15 x 15 Decelerations:: None and Variable FHR Category:: Category I Uterine Activity:: every 2-3 minutes ROS Constitutional Constitutional: Reports systems reviewed and no addt'l complaints, except as documented; Denies headache(s) Eyes Eyes: Denies acute decrease in peripheral vision, blurry vision or change in vision ENT HEENT: Reports systems reviewed and no addt'l complaints, except as documented Cardiovascular Cardiovascular: Denies chest pain or dizziness Respiratory/Chest Respiratory/Chest: Denies cough, dyspnea, dyspnea on exertion, shortness of breath at rest or shortness of breath with exertion Gastrointestinal Gastrointestinal: Denies abdominal pain, diarrhea, nausea or vomiting Genitourinary Genitourinary: Denies abdominal discomfort or movement Musculoskeletal Musculoskeletal: Denies limited range of motion Integumentary Integumentary: Reports systems reviewed and no addt'l complaints, except as documented Neurologic Neurologic: Reports systems reviewed and no addt'l complaints, except as documented Psychiatric Psychiatric: Reports systems reviewed and no addt'l complaints, except as documented Endocrine Endocrinology: Reports systems reviewed and no addt'l complaints, except as documented Hematologic/Lymphatic Hematologic/Lymphatic: Reports systems reviewed and no addt'l complaints, except as documented Allergic/Immunologic Allergic/Immunologic: Reports systems reviewed and no addt'l complaints, except as documented Vital Signs Vital Signs Vital Signs: 07/08/21 10:40 07/08/21 10:45 07/08/21 12:31 Temperature 97.2 F L 97.2 F L Temperature Source Temporal Tympanic Pulse Rate 112 H 111 H 100 Blood Pressure 133/89 H 144/89 H BP Systolic 133 144 BP Diastolic 89 89 Pulse Ox 85 98 07/08/21 13:42 07/08/21 14:26 07/08/21 15:22 Temperature 97.6 F L 97.6 F L 97.0 F L Temperature Source Temporal Temporal Temporal Pulse Rate 99 96 Blood Pressure 145/79 H 138/83 H BP Systolic 145 138 BP Diastolic 79 83 Pulse Ox 07/08/21 15:23 07/08/21 16:34 07/08/21 16:40 Temperature 97.2 F L Temperature Source Temporal Pulse Rate 105 H 101 H Blood Pressure 159/89 H 148/85 H BP Systolic 159 148 BP Diastolic 89 85 Pulse Ox 07/08/21 17:12 07/08/21 17:17 07/08/21 17:21 Temperature Temperature Source Pulse Rate 115 H 111 H 114 H Blood Pressure 152/99 H BP Systolic 152 BP Diastolic 99 Pulse Ox 97 98 07/08/21 17:22 07/08/21 17:25 07/08/21 17:27 Temperature Temperature Source Pulse Rate 109 H 113 H 94 Blood Pressure 151/90 H BP Systolic 151 BP Diastolic 90 Pulse Ox 99 98 07/08/21 17:31 07/08/21 17:32 07/08/21 17:37 Temperature Temperature Source Pulse Rate 107 H 105 H 118 H Blood Pressure 148/103 H 131/72 H BP Systolic 148 131 BP Diastolic 103 72 Pulse Ox 96 99 07/08/21 17:41 07/08/21 17:42 07/08/21 17:46 Temperature 97.0 F L Temperature Source Temporal Pulse Rate 120 H 118 H Blood Pressure 118/62 130/63 H BP Systolic 118 130 BP Diastolic 62 63 Pulse Ox 07/08/21 17:50 07/08/21 17:57 07/08/21 18:01 Temperature Temperature Source Pulse Rate 118 H 122 H 123 H Blood Pressure 114/68 113/69 110/69 BP Systolic 114 113 110 BP Diastolic 68 69 69 Pulse Ox 07/08/21 18:06 07/08/21 18:10 07/08/21 18:43 Temperature 97.0 F L Temperature Source Temporal Pulse Rate 118 H 106 H Blood Pressure 121/62 H 110/65 BP Systolic 121 110 BP Diastolic 62 65 Pulse Ox 07/08/21 18:44 07/08/21 19:14 07/08/21 19:16 Temperature 97.8 F Temperature Source Temporal Pulse Rate 113 H 107 H 111 H Blood Pressure 131/69 H 119/62 BP Systolic 131 119 BP Diastolic 69 62 Pulse Ox 100 07/08/21 19:38 07/08/21 19:44 07/08/21 19:49 Temperature Temperature Source Pulse Rate 102 H 98 102 H Blood Pressure BP Systolic BP Diastolic Pulse Ox 100 100 100 07/08/21 20:19 07/08/21 20:20 Temperature 97.9 F Temperature Source Temporal Pulse Rate 108 H Blood Pressure 113/55 L BP Systolic 113 BP Diastolic 55 Pulse Ox Weight Weight: 245 lb Body Mass Index (BMI) 43.4 Physical Exam Const alert and oriented x3 General Appearance: cooperative Orientation / Consciousness: awake, oriented to person, oriented to place and oriented to time Exam Limitations: no limitations HEENT normocephalic Head and Scalp: normal to inspection, normocephalic and atraumatic Face and Sinus: normal facial exam Eyes General Eye: normal appearance of both eyes Neck full ROM Chest Chest: symmetrical chest wall rise Resp normal respiratory effort and normal air movement Auscultation: clear to auscultation bilaterally Cardio regular rate, regular rhythm, S1 normal heart sound, S2 normal heart sound, no murmurs, no rub, no gallops and no clicks GI normal to inspection, nondistended, normoactive bowel sounds and non-tender appearance of the vagina normal Bladder / Kidney Exam: no CVA tenderness Manual OB Exam: estimated gestational size appropriate, presentation cephalic, dilated 10cm, effaced 100% and station 0 Amniotic Fluid: clear amniotic fluid Back/Spine normal ROM Extremity normal to inspection and full ROM Skin no rashes or lesions noted Neuro oriented x3, CN's II-XII intact bilaterally and moves all extremities Sensorium / Orientation: awake, alert and oriented to person Motor Exam: clonus absent Deep Tendon Reflexes: Rt Patellar (L4): 2+ and Lt Patellar (L4): 2+ Labs Labs Labs: Blood Type O POSITIVE Antibody Screen NEGATIVE Hct 36.6 % (37-47) L Hgb 12.2 g/dL (12.0-15.0) RPR negative HIV negative HepC negative HBsAG negative GC/CT negative O positive GBS negative Rubella immune Assessment & Plan (1) Bipolar depression: (2) Obesity affecting : (3) SROM (spontaneous rupture of membranes): (4) History of posttraumatic stress disorder (PTSD): PLAN: 1) ROM plus positive, admit to L&D 2) Continuous EFM 3) Pitocin per policy for active management 4) Routine labs and covid screen 5) Epidural for pain management 6) collaborative physician and notified of patient status.
--- NOTE | 2021-07-08 22:29 | EX.PCM.OBRPT ---
Assessment & Plan (1) History of posttraumatic stress disorder (PTSD): (2) Bipolar depression: (3) Obesity: (4) Vaginal delivery: (5) First degree perineal laceration: Maternal Data Information KATYA Calculator Estimated Delivery Date Method Current WG Current Estimate 07/12/21 Manual 39w 3d Vaginal Delivery Maternal Presentation Maternal Presentation: Spontaneous Rupture of Membranes Maternal Presentation: Augmentation with pitocin Operative Information Date of Procedure: 07/08/21 Pre-Operative Diagnosis: SROM Post-Operative Diagnosis: 2154 Surgery / Procedure Performed: Spontaneous Vaginal Delivery Type of Anesthesia: Epidural Estimated Blood Loss: 250 ml Time of Delivery: 21:54 Findings Description of Procedure: Progressed to complete with urge to push. of viable male infant over first degree perineal laceration, APGARS 8,9. Infant head delivered ESTEFANY and restituted to SHANNON with nuchal cord and posterior nuchal hand, body immediately forthcoming. placed on maternal abdomen, strong cry. Mouth and nares suctioned for secretions. Pitocin started for active 3rd stage management. Placenta delivered with expression via memo intact, 3 vessel cord. Perineum inspected and revealed first degree perineal laceration, repaired under epidural with 3.0 vicryl rapide. Fundus firm and vaginal sweep completed by me, EBL 250ml. Sponge and instrument count complete. Mom and baby stable. Family bonding well. Planning to breastfeed. notified. Presentation: ESTEFANY Amniotic Membrane Rupture Type: Spontaneous Amniotic Fluid Description: Clear Placental Delivery Description: Spontaneous Placenta Disposition: [facility] Cord Vessel Description: 3 Vessels Cord Entanglement: Around neck x 1, loose Nuchal Cord Compression: Without compression A Gender: Male (1 minute): 8 (5 minute): 9 Delayed Cord Clamping: Yes Post Vaginal Delivery Medications Given After Delivery: IV Pitocin Episiotomy Description: None Laceration: Perineal Extension/lac and 1st degree Complication Complications: None
[2021-07-09] VITALS (10 sets, daily range): BP systolic 113–127; BP diastolic 59–76; PULSE 98–118; RESP 16–18; TEMP 35.9–36.6; O2SAT 97–98
[2021-07-09] MEDS: Ibuprofen 600 MG Tablet PO ×3 (01:50→18:27)
[2021-07-09] MEDS: Acetaminophen 500 MG Tablet 1000 MG PO ×2 (05:50→16:02)
--- NOTE | 2021-07-09 08:02 | PCM.PN.OB ---
Subjective Subjective Pt doing well. Pain controlled. Lochia normal. Difficulty with latching. No CP, SOB, leg pain. Objective Data Objective Data Vital Signs: Vital Signs Temp Pulse Resp BP Pulse Ox 96.7 F L 113 H 16 125/66 H 100 07/09/21 03:06 07/09/21 03:06 07/09/21 03:06 07/09/21 03:06 07/08/21 22:54 Oxygen Delivery Method Room Air Weight: 245 lb Body Mass Index (BMI) 43.4 Intake & Output: Intake and Output for Last 24 Hours 07/07/21 07/08/21 07/09/21 23:59 23:59 23:59 Intake Total 2331.16 / 2331.16 333 / 333 Output Total 300 / 300 200 / 200 Balance 2031.16 / 2031.16 133 / 133 Lab / Micro Data Result Diagrams: 07/08/21 12:05 Labs: Laboratory Results - last 24 hr 07/08/21 10:55: Vag Amniotic Fld Detect POSITIVE H 07/08/21 12:05: WBC 13.2 H, RBC 4.20, Hgb 12.2, Hct 36.6 L, MCV 87.1, MCH 29.0, MCHC 33.3, RDW Std Deviation 40.8, RDW Coeff of Gustavo 13.1, Plt Count 209, MPV 11.7, Immature Gran % (Auto) 0.800, Neut % (Auto) 79.9 H, Lymph % (Auto) 13.8 L, [place] % (Auto) 5.0, Eos % (Auto) 0.2, Baso % (Auto) 0.3, Absolute Neuts (auto) 10.5 H, Absolute Lymphs (auto) 1.81, Nucleated RBC % 0 07/08/21 12:05: Blood Type O POSITIVE, Antibody Screen NEGATIVE Micro: Microbiology 07/08/21 12:05 Nasal Secretion SARS-CoV-2 Antigen (Rapid) - Final Physical Exam Const alert General Appearance: comfortable Resp normal respiratory effort GI soft to palpation, non-tender and non-distended Extremity no calf tenderness Assessment & Plan (1) First degree perineal laceration: (2) Vaginal delivery: PLAN: PPD#1 s/p Doing well to see Mood stable Anticipate discharge tomorrow (3) Obesity: (4) History of posttraumatic stress disorder (PTSD): (5) Bipolar depression:
[2021-07-09] MEDS: Senna/Docusate Sodium 1 Tablet PO (13:06)
--- NOTE | 2021-07-09 13:52 | CASEMGMT ---
Social Work Labor and Delivery Unit Consult placed in baby's chart for maternal history of mental health including Bipolar Disorder, depression, anxiety, PTSD, and suicidal ideation. Mother of baby also a first time mother. Chart reviewed. Plan to meet with patient/mother of baby on 07.10.2021 for assessment and provision of resources as indicated after assessment. -BONI Bedolla, COMPOSITION WORKER
[2021-07-10] MEDS: Acetaminophen 500 MG Tablet 1000 MG PO (00:24)
[2021-07-10 03:00] VITALS: BP 123/66; PULSE 94; RESP 18; TEMP 36.2
[2021-07-10 03:01] VITALS: BP 123/66; PULSE 94
[2021-07-10] MEDS: Senna/Docusate Sodium 1 Tablet PO (03:08)
[2021-07-10] MEDS: Ibuprofen 600 MG Tablet PO ×2 (03:08→13:28)
[2021-07-10 07:50] VITALS: BP 102/64; PULSE 106; RESP 16; TEMP 35.7
[2021-07-10 07:52] VITALS: BP 102/64; PULSE 106
--- NOTE | 2021-07-10 08:32 | PCM.PN.OB ---
Subjective Subjective Doing well per patient and nursing staff. Ambulating and taking PO without difficulty. Voiding and passing flatus. Pain controlled. , services for assistance. Denies headache, visual changes, chest pain, shortness of breath, leg pain or increased bleeding. Lochia normal. Objective Data Objective Data Vital Signs: Vital Signs Temp Pulse Resp BP Pulse Ox 96.3 F L 106 H 16 102/64 98 07/10/21 07:50 07/10/21 07:52 07/10/21 07:50 07/10/21 07:52 07/09/21 15:58 Oxygen Delivery Method Room Air Weight: 245 lb Body Mass Index (BMI) 43.4 Intake & Output: Intake and Output for Last 24 Hours 07/08/21 07/09/21 07/10/21 23:59 23:59 23:59 Intake Total 2331.16 / 2331.16 333 / 333 Output Total 300 / 300 550 / 550 Balance 2030.16 / 2030.16 -217 / -217 Lab / Micro Data Result Diagrams: 07/08/21 12:05 Micro: Microbiology 07/08/21 12:05 Nasal Secretion SARS-CoV-2 Antigen (Rapid) - Final ROS Constitutional Constitutional: Reports systems reviewed and no addt'l complaints, except as documented; Denies headache(s) Eyes Eyes: Denies acute decrease in peripheral vision, blurry vision or change in vision ENT HEENT: Reports systems reviewed and no addt'l complaints, except as documented Cardiovascular Cardiovascular: Denies chest pain or dizziness Respiratory/Chest Respiratory/Chest: Denies cough, dyspnea, dyspnea on exertion, shortness of breath at rest or shortness of breath with exertion Gastrointestinal Gastrointestinal: Denies abdominal pain, diarrhea, nausea or vomiting Genitourinary Genitourinary: Denies abdominal discomfort Musculoskeletal Musculoskeletal: Denies limited range of motion Integumentary Integumentary: Reports systems reviewed and no addt'l complaints, except as documented Neurologic Neurologic: Reports systems reviewed and no addt'l complaints, except as documented Psychiatric Psychiatric: Reports systems reviewed and no addt'l complaints, except as documented Endocrine Endocrinology: Reports systems reviewed and no addt'l complaints, except as documented Hematologic/Lymphatic Hematologic/Lymphatic: Reports systems reviewed and no addt'l complaints, except as documented Allergic/Immunologic Allergic/Immunologic: Reports systems reviewed and no addt'l complaints, except as documented Physical Exam Const alert and oriented x3 General Appearance: cooperative Orientation / Consciousness: awake, oriented to person, oriented to place and oriented to time Exam Limitations: no limitations HEENT normocephalic Head and Scalp: normal to inspection, normocephalic and atraumatic Face and Sinus: normal facial exam Eyes General Eye: normal appearance of both eyes Neck full ROM Chest Chest: symmetrical chest wall rise Resp normal respiratory effort and normal air movement Auscultation: clear to auscultation bilaterally Cardio regular rate, regular rhythm, S1 normal heart sound, S2 normal heart sound, no murmurs, no rub, no gallops and no clicks GI normal to inspection, nondistended, normoactive bowel sounds and non-tender Narrative: Fundus firm 2 below U Back/Spine normal ROM Extremity normal to inspection and full ROM Skin no rashes or lesions noted Neuro oriented x3, CN's II-XII intact bilaterally and moves all extremities Sensorium / Orientation: awake, alert and oriented to person Motor Exam: clonus absent Deep Tendon Reflexes: Rt Patellar (L4): 2+ and Lt Patellar (L4): 2+ Assessment & Plan (1) First degree perineal laceration: (2) Vaginal delivery: (3) Obesity: (4) History of posttraumatic stress disorder (PTSD): (5) Bipolar depression: PLAN: 1) PPD#2 S/P with first degree perineal laceration 2) Mood stable 3) VSS stable 4) Pain controlled 5) Follow up in 2 weeks and 6 weeks PP 6) D/C home
--- NOTE | 2021-07-10 08:34 | PCM.DC.SUM ---
Providers Date of Admission: 07/08/21 Primary Care Physician: Dr. London Ferris MD Reason For Visit: VAGINAL DELIVERY Diagnosis Discharge Diagnosis (1) First degree perineal laceration: Status: Acute Code(s): O70.0 - First degree perineal laceration during delivery (2) Vaginal delivery: Status: Acute Code(s): O80 - Encounter for full-term uncomplicated delivery (3) Obesity: Status: Acute Code(s): E66.9 - Obesity, unspecified (4) History of posttraumatic stress disorder (PTSD): Status: Acute Code(s): Z86.59 - Personal history of other mental and behavioral disorders (5) Bipolar depression: Status: Acute Code(s): F31.9 - Bipolar disorder, unspecified Medications at Discharge Home Medications lamotrigine [Lamictal] 25 mg PO QODAY 07/08/21 acetaminophen 1,000 mg PO Q6H PRN PRN #0 tab 07/10/21 benzocaine-menthol [Dermoplast (with menthol)] 1 spray TOPICAL TID PRN PRN #0 g 07/10/21 ibuprofen 600 mg PO Q6H PRN PRN #30 tab 07/10/21 Weight / BMI Weight Weight: 245 lb Body Mass Index (BMI) 43.4 ABG / Lab / Microbiology Data Result Diagrams: 07/08/21 12:05 Microbiology: Microbiology 07/08/21 12:05 Nasal Secretion SARS-CoV-2 Antigen (Rapid) - Final Meaningful Use Info Meaningful Use Diagnoses (Choose all that apply): None applicable Discharge Plan Admission Admit Date/Time: 07/08/21 11:15 Primary Reason for Your Visit: Vaginal delivery Attending Provider: Soni Gonzalez Primary Care Provider: London Ferris Instructions Patient Instructions: After a Vaginal , Expressing Your Milk, , : Caring for Yourself Discharge Orders/Prescriptions Prescriptions: New Dermoplast (with menthol) 20-0.5 % Aerosol 1 spray topical TID PRN PRN (Reason: perineal discomfort) Qty: 0 RF: 0 acetaminophen 500 mg Tablet 1,000 mg PO Q6H PRN PRN (Reason: Pain 1-10 Or Fever) Qty: 0 RF: 0 ibuprofen 600 mg Tablet 600 mg PO Q6H PRN PRN (Reason: Pain Score 1-3) Qty: 30 RF: 0 Continued lamotrigine [Lamictal] 25 mg Tablet 25 mg PO QODAY RF: 0 Discontinued pantoprazole 40 MG tablet,delayed release (DR/EC) 40 mg PO DAILY Qty: 30 RF: 1 docusate sodium [Colace] 100 mg Capsule 100 mg PO DAILY RF: 0 aspirin 81 mg Tablet 81 mg PO DAILY RF: 0 Referrals / Follow Up: Soni Gonzalez CNM [Certified Nurse Wood Scrap Handler] - (Follow up in 2 weeks for virtual or in person visit and 6 week in person visit) London Ferris MD [Primary Care Provider] - Disposition Disposition (needs filled in before D/C Order can be placed): Home, Self Care
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
[2021-07-10] MEDS: Benzocaine/Lanolin/Aloe Vera 1 SPRAY EACH TOPICAL (13:28)
--- NOTE | 2021-07-11 12:51 | CASEMGMT ---
Social Work Labor and Delivery unit Help me grow referral submitted through the [facility] assisted care web-based referral system. No other services requested or indicated. -BONI Bedolla, POLISH COMPOUNDER. *This note was generated with ClearMyMail dictation software. It may contain incorrect words, spelling, and punctuation that were not noted in review of the chart prior to signing*
== END 2021-07-10 14:20 | disposition home or self-care (01) | DRG 560 ==
LOC: WPOUT 11:21 → WP 11:21
PROVIDERS: Admitting Provider Advanced Practice Midwife; PCP Family Medicine; Referring Provider Advanced Practice Midwife; Visit Provider Advanced Practice Midwife
DX: O70.0 First degree perineal laceration during delivery (principal); Z37.0 Single live birth; O99.344 Other mental disorders complicating childbirth; E66.01 Morbid (severe) obesity due to excess calories; F31.9 Bipolar disorder, unspecified; F41.9 Anxiety disorder, unspecified; Z79.82 Long term (current) use of aspirin; O99.214 Obesity complicating childbirth; Z87.891 Personal history of nicotine dependence; O69.2XX0 Labor and delivery complicated by other cord entanglement, with compression, not applicable or unspecified; F43.10 Post-traumatic stress disorder, unspecified; Z86.59 Personal history of other mental and behavioral disorders; Z3A.39 39 weeks gestation of pregnancy
CPT/HCPCS: 59025; 59050; 84112; 85025; 86850; 86900; 86901; 87426; 99218; J7120; G0378; J2405